=== PATIENT | male | born 1980 | race African-American/Black ===

== ENCOUNTER 2022-03-24 12:02 | Emergency (ER) | payer MEDICARE, MEDICAID, SELFPAY ==
[2022-03-24 12:09] VITALS: BP 118/80; BP 120/89; PULSE 73; PULSE 92; RESP 16; TEMP 36.9; O2SAT 98; BMI 30.7
--- NOTE | 2022-03-24 12:16 | ED.PSYCH ---
HPI - Psych General Chief Complaint: Psychiatric Symptoms <TAVON Oconnor - Last Filed: 03/24/22 17:08> Stated Complaint: SEC 12 by N, -SI/HI, Anxiety <TAVON Oconnor - Last Filed: 03/24/22 17:08> Time Seen by Provider: 03/24/22 12:15 <TAVON Oconnor - Last Filed: 03/24/22 17:08> Source: patient, EMS and old records reviewed <TAVON Oconnor - Last Filed: 03/24/22 17:08> Mode of arrival: EMS <TAVON Oconnor - Last Filed: 03/24/22 17:08> Limitations: no limitations <TAVON Oconnor - Last Filed: 03/24/22 17:08> History of Present Illness HPI Narrative: 41 yo male with history of unknown psychiatric diagnoses and polysubstance use who presents to the ER from [facility] clinic with concerns for AMS and increased anxiety. Patient reports he grew up in [place] and used to get all of his behavioral health care there. He states he has had lifelong issues with drugs and psychiatric illnesses. He cannot say what his psychiatric illnesses are. He does not know why he is in the emergency department. He states someone from the [facility] and clinic called for him to get evaluated because they were worried about him. He cannot say why they were worried. He reports medication noncompliance. He denies any SI, HI, anxiety, depression. History is limited. Poor historian. Section 12 from community - pressured speech, anxious, disorganized thought process, not compliant with meds <TAVON Oconnor - Last Filed: 03/24/22 17:08> MD complaint: anxiety <TAVON Oconnor - Last Filed: 03/24/22 17:08> Onset (ago): unknown <TAVON Oconnor - Last Filed: 03/24/22 17:08> History of same: Yes <TAVON Oconnor - Last Filed: 03/24/22 17:08> Relieving factors: none <TAVON Oconnor - Last Filed: 03/24/22 17:08> Exacerbating factors: none <TAVON Oconnor - Last Filed: 03/24/22 17:08> Context: not taking psychiatric medications <TAVON Oconnor Last Filed: 03/24/22 17:08> Associated psychiatric symptoms: depression and other (fatigue) <TAVON Oconnor Last Filed: 03/24/22 17:08> Associated symptoms: headache <TAVON Oconnor Last Filed: 03/24/22 17:08> Treatments prior to arrival: placed on mental health hold <TAVON Oconnor Last Filed: 03/24/22 17:08> Related Data Home Medications: Home Medications Medication Instructions Recorded Confirmed fluphenazine HCl 5 mg tablet 1 tab PO BID PRN manic episodes 03/24/22 03/24/22 fluphenazine decanoate 25 mg/mL 12.5 mg IM Q2W 03/24/22 03/24/22 injection solution melatonin 5 mg capsule 1 cap PO QPM 03/24/22 03/24/22 olanzapine 15 mg tablet 1 tab PO BEDTIME 03/24/22 03/24/22 valacyclovir 500 mg tablet 2 tab PO DAILY 03/24/22 03/24/22 <TAVON Oconnor Last Filed: 03/24/22 17:08> Allergies/Adverse Reactions: Allergies Allergy/AdvReac Type Severity Reaction Status Date / Time Unable to Assess Allergy Unverified 03/24/22 12:52 <TAVON Oconnor Last Filed: 03/24/22 17:08> Review of Systems Review of Systems: Constitutional: No Fever, No Chills ENT/Mouth: No sore throat, No Rhinorrhea, No Swallowing Difficulty Cardiovascular: No Chest Pain, No SOB Respiratory: No Cough, No Sputum, No Wheezing, No dyspnea Gastrointestinal: No Nausea, No Vomiting, No Diarrhea, No abdominal Pain Genitourinary: No Dysuria, No Urinary Frequency, No Hematuria Musculoskeletal: No joint pain, No Myalgias Skin: No Skin Lesions, No rash Neuro: No Weakness, No Dizziness, No Headache Psych: No Anxiety/Panic, No Depression Heme/Lymph: No Bruising, No Lymphadenopathy <TAVON Oconnor Last Filed: 03/24/22 17:08> [facility] Social History Social History: Social History Advance Directives: No <TAVON Oconnor - Last Filed: 03/24/22 17:08> Physical Exam Vital Signs: Vital Signs: Last Vital Signs Temp 97.8 F 03/25/22 06:07 Pulse 78 03/25/22 06:07 Resp 16 03/25/22 06:07 BP 132/87 03/25/22 06:07 Pulse Ox 98 03/25/22 06:07 O2 Del Method 03/25/22 06:07 BMI result Body Mass Index 30.7 <TAVON Oconnor - Last Filed: 03/24/22 17:08> Vital Signs: Last Vital Signs Temp 97.8 F 03/25/22 06:07 Pulse 78 03/25/22 06:07 Resp 16 03/25/22 06:07 BP 132/87 03/25/22 06:07 Pulse Ox 98 03/25/22 06:07 O2 Del Method 03/25/22 06:07 BMI result Body Mass Index 30.7 <TAVON Solomon - Last Filed: 03/25/22 16:39> Appearance: Alert. Oriented X3. No acute distress. Eyes: Pupils equal, round and reactive to light. ENT: Pharynx normal. Neck: Normal inspection. Neck supple. CVS: Normal heart rate and rhythm. Pulses normal. Respiratory: No respiratory distress. Breath sounds normal. Abdomen: Soft and nontender. +BS x4 Skin: Skin warm and dry. Normal skin color. Normal skin turgor. No rashes. Extremities: No lower extremity edema. Neuro/psych: Oriented X 3. No motor deficit. No sensory deficit. CN II-XII intact. Makes eye contact. Vague answers, poor historian. <TAVON Oconnor - Last Filed: 03/24/22 17:08> Course Course Course Narrative: 41-year-old male presents to the ER from [facility] with reports of anxiety and altered mental status. He is on a Section 12 from the community per EMS. He has never been to this facility. Will get basic lab workup, U tox, ETOH level. Will attempt to get records. Once medically cleared will initiate inpatient bed search. <TAVON Oconnor - Last Filed: 03/24/22 17:08> Reevaluation(s) Reevaluation #1: Physician observation started at 17:00. Patient placed in physician observation because patient is need of inpatient psych admission. Still pending basic labs. At the time observation was started patient's vital signs were stable. Patient is alert and oriented. Neuro exam is non-focal. CV: RRR and lungs are clear. Will continue to monitor. <TAVON Oconnor - Last Filed: 03/24/22 17:08> Reevaluation #2: - patient was re-evaluated by N and now he denies any SI/HI/auditory visualizations or thoughts of self-injury. He is sober at this time therefore I believe that this is why he was having disorganized thoughts and when he was 1st seen here. [facility] does not believe that he is having any disorganized thoughts they believe that he can make his own medical decisions. Therefore at this time patient will be discharged with instructions return if any new or worsening symptoms and to follow up with primary care provider. Patient understands agrees with this plan. <TAVON Solomon - Last Filed: 03/25/22 16:39> Time: 16:39 <TAVON Solomon - Last Filed: 03/25/22 16:39> Medications Administered Generic Name Dose Route Start Last Admin Trade Name Freq PRN Reason Stop Dose Admin Fluphenazine HCl 5 mg 03/24/22 13:34 03/25/22 07:41 Fluphenazine Hcl 5 Mg Tablet PO 5 mg BID PRN Administration manic episodes Melatonin 6 mg 03/24/22 21:00 03/24/22 20:33 Melatonin 3 Mg Tablet PO 6 mg BEDTIME MIKAYLA Administration Nicotine Polacrilex 2 mg 03/24/22 13:35 03/25/22 16:23 Nicotine Polacrilex 2 Mg Gum BUCCAL 2 mg Q2H PRN Administration Nicotine Cravings Olanzapine 15 mg 03/24/22 21:00 03/24/22 20:33 Olanzapine 7.5 Mg Tablet PO 15 mg BEDTIME MIKAYLA Administration <TAVON Oconnor - Last Filed: 03/24/22 17:08> Medications Administered Generic Name Dose Route Start Last Admin Trade Name Freq PRN Reason Stop Dose Admin Fluphenazine HCl 5 mg 03/24/22 13:34 03/25/22 07:41 Fluphenazine Hcl 5 Mg Tablet PO 5 mg BID PRN Administration manic episodes Melatonin 6 mg 03/24/22 21:00 03/24/22 20:33 Melatonin 3 Mg Tablet PO 6 mg BEDTIME MIKAYLA Administration Nicotine Polacrilex 2 mg 03/24/22 13:35 03/25/22 16:23 Nicotine Polacrilex 2 Mg Gum BUCCAL 2 mg Q2H PRN Administration Nicotine Cravings Olanzapine 15 mg 03/24/22 21:00 03/24/22 20:33 Olanzapine 7.5 Mg Tablet PO 15 mg BEDTIME MIKAYLA Administration <TAVON Solomon - Last Filed: 03/25/22 16:39> MDM - Psych Lab Data Result diagrams: : 03/24/22 22:13 03/24/22 22:14 <TAVON Oconnor - Last Filed: 03/24/22 17:08> Labs: Lab Results 03/24/22 03/24/22 03/24/22 Range/Units 12:20 12:20 12:20 WBC (4.8-10.8) X10*3/uL RBC (4.60-5.80) X10*6/uL Hgb (14.0-18.0) g/dl Hct (42.0-52.0) % MCV (80.0-98.0) fL MCH (27.0-33.0) pg MCHC (31.0-36.0) g/dl RDW (11.0-16.0) % Plt Count (160-400) X10*3/uL MPV (9.4-12.4) fL Immature Gran % (Auto) (0.0-0.4) % Neut % (Auto) (45-73) % Lymph % (Auto) (20-40) % Grant % (Auto) (2-11) % Eos % (Auto) (0-4) % Baso % (Auto) (0-2) % Lymph # (Auto) (1.2-4.9) X10*3/uL Grant # (Auto) (0.1-1.2) X10*3/uL Eos # (Auto) (0.0-0.4) X10*3/uL Baso # (Auto) (0.0-0.2) X10*3/uL Abs Immat Gran (auto) (0.00-0.03) X10*3/uL Absolute Neuts (auto) (2.0-8.3) x10*3/uL Absolute Nucleated RBC (0.0-0.012) X10*3/uL Nucleated RBC % (auto) (0.0-0.2) /100WBC Smear Tech's Comments Sodium (135-145) mmol/L Potassium (3.3-5.1) mmol/L Chloride (96-108) mmol/L Carbon Dioxide (22-29) mmol/L Anion Gap (12-20) BUN (9-16) mg/dL Creatinine (0.5-1.4) mg/dL Estim Creat Clear Calc Estimated GFR Random Glucose (60-115) mg/dL Calcium (8.4-10.2) mg/dL Magnesium (1.6-2.6) mg/dL Total Bilirubin (0.0-1.0) mg/dL Direct Bilirubin (0.0-0.5) mg/dL AST (5-37) U/L ALT (0-40) U/L Alkaline Phosphatase (39-117) U/L Total Protein (6.5-8.0) g/dL Albumin (3.5-5.0) g/dL Urine Color Yellow Urine Appearance Clear Urine pH 6.0 (5.0-9.0) Ur Specific Pattison 1.020 (1.005-1.025) Urine Protein Negative (Neg-Trace) mg/dL Urine Glucose (UA) Negative (Negative) mg/dL Urine Ketones Negative (Negative) mg/dL Urine Blood Negative (Negative) Urine Nitrite Negative (Negative) Ur Leukocyte Esterase Negative (Negative) Urine Opiates Screen Not Detected (Not Detect) Urine Fentanyl Screen Not Detected (Not Detect) Ur Barbiturates Screen Not Detected (Not Detect) Ur Phencyclidine Scrn Not Detected (Not Detect) Ur Amphetamines Screen Not Detected (Not Detect) U Benzodiazepines Scrn Not Detected (Not Detect) Urine Cocaine Screen POSITIVE H (Not Detect) U Marijuana (THC) Screen POSITIVE H (Not Detect) Ethyl Alcohol mg/dL COVID-19 (DELIA) Negative (Negative) COVID-19 Clin Com See Note 03/24/22 03/24/22 Range/Units 22:13 22:14 WBC 3.7 L (4.8-10.8) X10*3/uL RBC 4.91 (4.60-5.80) X10*6/uL Hgb 14.2 (14.0-18.0) g/dl Hct 41.8 L (42.0-52.0) % MCV 85.1 (80.0-98.0) fL MCH 28.9 (27.0-33.0) pg MCHC 34.0 (31.0-36.0) g/dl RDW 14.0 (11.0-16.0) % Plt Count 238 (160-400) X10*3/uL MPV 9.9 (9.4-12.4) fL Immature Gran % (Auto) 0.0 (0.0-0.4) % Neut % (Auto) 16.0 L (45-73) % Lymph % (Auto) 71.6 H (20-40) % Grant % (Auto) 8.9 (2-11) % Eos % (Auto) 2.4 (0-4) % Baso % (Auto) 1.1 (0-2) % Lymph # (Auto) 2.7 (1.2-4.9) X10*3/uL Grant # (Auto) 0.3 (0.1-1.2) X10*3/uL Eos # (Auto) 0.1 (0.0-0.4) X10*3/uL Baso # (Auto) 0.0 (0.0-0.2) X10*3/uL Abs Immat Gran (auto) 0.00 (0.00-0.03) X10*3/uL Absolute Neuts (auto) 0.6 L (2.0-8.3) x10*3/uL Absolute Nucleated RBC 0.000 (0.0-0.012) X10*3/uL Nucleated RBC % (auto) 0.0 (0.0-0.2) /100WBC Smear Tech's Comments VERIFIED Sodium 135 (135-145) mmol/L Potassium 4.7 (3.3-5.1) mmol/L Chloride 102 (96-108) mmol/L Carbon Dioxide 23 (22-29) mmol/L Anion Gap 15 (12-20) BUN 15 (9-16) mg/dL Creatinine 1.28 (0.5-1.4) mg/dL Estim Creat Clear Calc 75.6 Estimated GFR > 60 Random Glucose 97 (60-115) mg/dL Calcium 9.5 (8.4-10.2) mg/dL Magnesium 2.3 (1.6-2.6) mg/dL Total Bilirubin 0.9 (0.0-1.0) mg/dL Direct Bilirubin 0.3 (0.0-0.5) mg/dL AST 28 (5-37) U/L ALT 15 (0-40) U/L Alkaline Phosphatase 82 (39-117) U/L Total Protein 7.8 (6.5-8.0) g/dL Albumin 4.3 (3.5-5.0) g/dL Urine Color Urine Appearance Urine pH (5.0-9.0) Ur Specific Pattison (1.005-1.025) Urine Protein (Neg-Trace) mg/dL Urine Glucose (UA) (Negative) mg/dL Urine Ketones (Negative) mg/dL Urine Blood (Negative) Urine Nitrite (Negative) Ur Leukocyte Esterase (Negative) Urine Opiates Screen (Not Detect) Urine Fentanyl Screen (Not Detect) Ur Barbiturates Screen (Not Detect) Ur Phencyclidine Scrn (Not Detect) Ur Amphetamines Screen (Not Detect) U Benzodiazepines Scrn (Not Detect) Urine Cocaine Screen (Not Detect) U Marijuana (THC) Screen (Not Detect) Ethyl Alcohol < 10 mg/dL COVID-19 (DELIA) (Negative) COVID-19 Clin Com <TAVON Oconnor - Last Filed: 03/24/22 17:08> Lab Results 03/24/22 03/24/22 03/24/22 Range/Units 12:20 12:20 12:20 WBC (4.8-10.8) X10*3/uL RBC (4.60-5.80) X10*6/uL Hgb (14.0-18.0) g/dl Hct (42.0-52.0) % MCV (80.0-98.0) fL MCH (27.0-33.0) pg MCHC (31.0-36.0) g/dl RDW (11.0-16.0) % Plt Count (160-400) X10*3/uL MPV (9.4-12.4) fL Immature Gran % (Auto) (0.0-0.4) % Neut % (Auto) (45-73) % Lymph % (Auto) (20-40) % Grant % (Auto) (2-11) % Eos % (Auto) (0-4) % Baso % (Auto) (0-2) % Lymph # (Auto) (1.2-4.9) X10*3/uL Grant # (Auto) (0.1-1.2) X10*3/uL Eos # (Auto) (0.0-0.4) X10*3/uL Baso # (Auto) (0.0-0.2) X10*3/uL Abs Immat Gran (auto) (0.00-0.03) X10*3/uL Absolute Neuts (auto) (2.0-8.3) x10*3/uL Absolute Nucleated RBC (0.0-0.012) X10*3/uL Nucleated RBC % (auto) (0.0-0.2) /100WBC Smear Tech's Comments Sodium (135-145) mmol/L Potassium (3.3-5.1) mmol/L Chloride (96-108) mmol/L Carbon Dioxide (22-29) mmol/L Anion Gap (12-20) BUN (9-16) mg/dL Creatinine (0.5-1.4) mg/dL Estim Creat Clear Calc Estimated GFR Random Glucose (60-115) mg/dL Calcium (8.4-10.2) mg/dL Magnesium (1.6-2.6) mg/dL Total Bilirubin (0.0-1.0) mg/dL Direct Bilirubin (0.0-0.5) mg/dL AST (5-37) U/L ALT (0-40) U/L Alkaline Phosphatase (39-117) U/L Total Protein (6.5-8.0) g/dL Albumin (3.5-5.0) g/dL Urine Color Yellow Urine Appearance Clear Urine pH 6.0 (5.0-9.0) Ur Specific Pattison 1.020 (1.005-1.025) Urine Protein Negative (Neg-Trace) mg/dL Urine Glucose (UA) Negative (Negative) mg/dL Urine Ketones Negative (Negative) mg/dL Urine Blood Negative (Negative) Urine Nitrite Negative (Negative) Ur Leukocyte Esterase Negative (Negative) Urine Opiates Screen Not Detected (Not Detect) Urine Fentanyl Screen Not Detected (Not Detect) Ur Barbiturates Screen Not Detected (Not Detect) Ur Phencyclidine Scrn Not Detected (Not Detect) Ur Amphetamines Screen Not Detected (Not Detect) U Benzodiazepines Scrn Not Detected (Not Detect) Urine Cocaine Screen POSITIVE H (Not Detect) U Marijuana (THC) Screen POSITIVE H (Not Detect) Ethyl Alcohol mg/dL COVID-19 (DELAI) Negative (Negative) COVID-19 Clin Com See Note 03/24/22 03/24/22 Range/Units 22:13 22:14 WBC 3.7 L (4.8-10.8) X10*3/uL RBC 4.91 (4.60-5.80) X10*6/uL Hgb 14.2 (14.0-18.0) g/dl Hct 41.8 L (42.0-52.0) % MCV 85.1 (80.0-98.0) fL MCH 28.9 (27.0-33.0) pg MCHC 34.0 (31.0-36.0) g/dl RDW 14.0 (11.0-16.0) % Plt Count 238 (160-400) X10*3/uL MPV 9.9 (9.4-12.4) fL Immature Gran % (Auto) 0.0 (0.0-0.4) % Neut % (Auto) 16.0 L (45-73) % Lymph % (Auto) 71.6 H (20-40) % Grant % (Auto) 8.9 (2-11) % Eos % (Auto) 2.4 (0-4) % Baso % (Auto) 1.1 (0-2) % Lymph # (Auto) 2.7 (1.2-4.9) X10*3/uL Grant # (Auto) 0.3 (0.1-1.2) X10*3/uL Eos # (Auto) 0.1 (0.0-0.4) X10*3/uL Baso # (Auto) 0.0 (0.0-0.2) X10*3/uL Abs Immat Gran (auto) 0.00 (0.00-0.03) X10*3/uL Absolute Neuts (auto) 0.6 L (2.0-8.3) x10*3/uL Absolute Nucleated RBC 0.000 (0.0-0.012) X10*3/uL Nucleated RBC % (auto) 0.0 (0.0-0.2) /100WBC Smear Tech's Comments VERIFIED Sodium 135 (135-145) mmol/L Potassium 4.7 (3.3-5.1) mmol/L Chloride 102 (96-108) mmol/L Carbon Dioxide 23 (22-29) mmol/L Anion Gap 15 (12-20) BUN 15 (9-16) mg/dL Creatinine 1.28 (0.5-1.4) mg/dL Estim Creat Clear Calc 75.6 Estimated GFR > 60 Random Glucose 97 (60-115) mg/dL Calcium 9.5 (8.4-10.2) mg/dL Magnesium 2.3 (1.6-2.6) mg/dL Total Bilirubin 0.9 (0.0-1.0) mg/dL Direct Bilirubin 0.3 (0.0-0.5) mg/dL AST 28 (5-37) U/L ALT 15 (0-40) U/L Alkaline Phosphatase 82 (39-117) U/L Total Protein 7.8 (6.5-8.0) g/dL Albumin 4.3 (3.5-5.0) g/dL Urine Color Urine Appearance Urine pH (5.0-9.0) Ur Specific Pattison (1.005-1.025) Urine Protein (Neg-Trace) mg/dL Urine Glucose (UA) (Negative) mg/dL Urine Ketones (Negative) mg/dL Urine Blood (Negative) Urine Nitrite (Negative) Ur Leukocyte Esterase (Negative) Urine Opiates Screen (Not Detect) Urine Fentanyl Screen (Not Detect) Ur Barbiturates Screen (Not Detect) Ur Phencyclidine Scrn (Not Detect) Ur Amphetamines Screen (Not Detect) U Benzodiazepines Scrn (Not Detect) Urine Cocaine Screen (Not Detect) U Marijuana (THC) Screen (Not Detect) Ethyl Alcohol < 10 mg/dL COVID-19 (DELIA) (Negative) COVID-19 Clin Com <TAVON Solomon - Last Filed: 03/25/22 16:39> Critical Care Time Critical Care Time Critical Care Time: No <TAVON Oconnor - Last Filed: 03/24/22 17:08> Discharge Plan Discharge Clinical Impression: Cocaine use disorder <TAVON Oconnor - Last Filed: 03/24/22 17:08> Patient Disposition: Home, Self-Care <TAVON Oconnor - Last Filed: 03/24/22 17:08> Instructions: Cocaine Abuse (ED) <TAVON Oconnor - Last Filed: 03/24/22 17:08> Prescriptions: No Action fluphenazine decanoate 25 mg/mL solution 12.5 mg IM Q2W fluphenazine HCl 5 mg tablet 1 tab PO BID PRN (Reason: manic episodes) melatonin 5 mg capsule 1 cap PO QPM olanzapine 15 mg tablet 1 tab PO BEDTIME valacyclovir 500 mg tablet 2 tab PO DAILY <TAVON Oconnor - Last Filed: 03/24/22 17:08> Referrals: Physician,Unknown J [Primary Care Provider] - 2 days (your pcp) <TAVON Oconnor - Last Filed: 03/24/22 17:08> Interventions: [place]-Suicide Risk Severity Scale Last Done: 03/25/22 14:05 <TAVON Oconnor - Last Filed: 03/24/22 17:08>
[2022-03-24 12:33] LABS: Appearance Urine Clear; Color Urine Yellow; Glucose Urine UA Negative (Negative); Leukocyte Esterase Urine Negative (Negative); Nitrite Urine Negative (Negative); Urine Blood Negative (Negative); Urine Ketones Negative (Negative); Urine Protein Negative (Neg-Trace)
[2022-03-24 12:42] LABS: Amphetamine Screen Urine Not Detected (Not Detect); Barbiturates, Urine Not Detected (Not Detect); Benzodiazepines Screen Urine Not Detected (Not Detect); Cannabinoid Screen Urine POSITIVE (Not Detect); Cocaine Screen Urine POSITIVE (Not Detect); Fentanyl, urine Not Detected (Not Detect); Opiate Screen Urine Not Detected (Not Detect); Phencyclidine Screen Urine Not Detected (Not Detect)
--- NOTE | 2022-03-24 12:42 | MHC.CARE ---
Seen by [facility] Livia and is a bed search from the community
[2022-03-24 12:46] LABS: COVID-19 Test Negative (Negative); IDNOW Serial# 16C4AD1C
--- NOTE | 2022-03-24 13:46 | PC.NURSE ---
Pt refusing blood draw at this time. Rn aware.
[2022-03-24 14:10] VITALS: BP 118/89; PULSE 82; RESP 18; TEMP 36.8; O2SAT 96
[2022-03-24] MEDS: Melatonin 3 MG TABLET 6 MG PO (20:33)
[2022-03-24] MEDS: OLANZapine 7.5 MG TABLET 15 MG PO (20:33)
[2022-03-24] MEDS: fluPHENAZine HCl 5 MG TABLET PO (22:23)
[2022-03-24 22:29] VITALS: BP 140/97; PULSE 64; RESP 18; TEMP 36.3; O2SAT 97
[2022-03-24 22:30] LABS: Basophils Percent Auto 1.1 % (0-2); Eosinophils Absolute Auto 0.1 X10*3/uL (0.0-0.4); Eosinophils Percent Auto 2.4 % (0-4); Hematocrit 41.8 % (42.0-52.0); Hemoglobin 14.2 g/dl (14.0-18.0); Lymphocytes Absolute Auto 2.7 X10*3/uL (1.2-4.9); Lymphocytes Percent Auto 71.6 % (20-40); MANUAL DIFF FLAG SCAN; Mean Corpuscular Hemoglobin 28.9 pg (27.0-33.0); Mean Corpuscular Volume 85.1 fL (80.0-98.0); Mean Platelet Volume 9.9 fL (9.4-12.4); Monocytes Absolute Auto 0.3 X10*3/uL (0.1-1.2); Monocytes Percent Auto 8.9 % (2-11); Neutrophils Absolute Auto 0.6 x10*3/uL (2.0-8.3); Platelet Count 238 X10*3/uL (160-400); Red Blood Count 4.91 X10*6/uL (4.60-5.80); SCAN SMEAR FLAG 1; White Blood Count 3.7 X10*3/uL (4.8-10.8)
[2022-03-24 22:46] LABS: Alanine Aminotransferase 15 U/L (0-40); Albumin Level 4.3 g/dL (3.5-5.0); Alkaline Phosphatase 82 U/L (39-117); Anion Gap 15 (12-20); Aspartate Amino Transferase 28 U/L (5-37); Bilirubin Direct 0.3 mg/dL (0.0-0.5); Blood Urea Nitrogen 15 mg/dL (9-16); Calcium 9.5 mg/dL (8.4-10.2); Carbon Dioxide 23 mmol/L (22-29); Chloride 102 mmol/L (96-108); Creatinine Clr Calc Pharmacy 75.6; Estimated Glomerular Filt Rate > 60; Ethanol < 10 mg/dL; Glucose Random 97 mg/dL (60-115); Magnesium 2.3 mg/dL (1.6-2.6); Potassium 4.7 mmol/L (3.3-5.1); Sodium 135 mmol/L (135-145); Total Protein 7.8 g/dL (6.5-8.0)
[2022-03-24 22:56] LABS: SLIDE REVIEW VERIFIED
[2022-03-24 23:53] LABS: Bilirubin Total 0.9 mg/dL (0.0-1.0)
--- NOTE | 2022-03-25 06:02 | PC.NURSE ---
Patient slept through the night, no distress observed/reported, behavior appropriate and non concerning at this time, medication compliant, disposition per [facility] from community is section 12 inpatient bed search, VSS, will continue to monitor.
[2022-03-25 06:07] VITALS: BP 132/87; PULSE 78; RESP 16; TEMP 36.6; O2SAT 98
[2022-03-25] MEDS: Nicotine Polacrilex 2 MG GUM BUCCAL ×3 (07:15→16:23)
[2022-03-25] MEDS: fluPHENAZine HCl 5 MG TABLET PO (07:41)
--- NOTE | 2022-03-25 08:40 | PC.NURSE ---
requested prn and given, polite and pleasant, nad, steady gait to bathroom, spending most of his time laying in the bed 7
== END 2022-03-25 16:47 | disposition home or self-care (01) ==
PROVIDERS: Physician Assistant; Emergency Provider Emergency Medicine
DX: F14.10 Cocaine abuse, uncomplicated (principal); F41.9 Anxiety disorder, unspecified; F32.A Depression, unspecified; Z20.822 Contact with and (suspected) exposure to COVID-19; Z91.14 Patient's other noncompliance with medication regimen
CPT/HCPCS: 36415; 80048; 80076; 80307; 81003; 82077; 83735; 85025; 87635; 99284

== ENCOUNTER 2022-04-12 15:28 | Inpatient (IN) | payer OTHER, MEDICAID, SELFPAY ==
[2022-04-12 15:41] VITALS: BP 109/85; PULSE 80; PULSE 90; RESP 16; TEMP 37; O2SAT 94; O2SAT 97; BMI 22.7
--- NOTE | 2022-04-12 15:43 | MHC.CARE ---
Pt is an inpatient bedsearch at this time.
[2022-04-12 16:27] LABS: COVID-19 Test Negative (Negative); IDNOW Serial# 9DB6401D
[2022-04-12 17:29] LABS: Amphetamine Screen Urine Not Detected (Not Detect); Barbiturates, Urine Not Detected (Not Detect); Benzodiazepines Screen Urine Not Detected (Not Detect); Cannabinoid Screen Urine Not Detected (Not Detect); Cocaine Screen Urine Not Detected (Not Detect); Fentanyl, urine Not Detected (Not Detect); Opiate Screen Urine Not Detected (Not Detect); Phencyclidine Screen Urine Not Detected (Not Detect)
--- NOTE | 2022-04-12 18:20 | ED.PSYCH ---
HPI - Psych General Chief Complaint: Psychiatric Symptoms <Leela Car MD - Last Filed: 04/12/22 21:56> Stated Complaint: SEC 12 <Leela Car MD - Last Filed: 04/12/22 21:56> Time Seen by Provider: 04/12/22 15:49 <Leela Car MD - Last Filed: 04/12/22 21:56> Source: patient and EMS <Leela Car MD - Last Filed: 04/12/22 21:56> Mode of arrival: EMS <Leela Car MD - Last Filed: 04/12/22 21:56> Limitations: no limitations <Leela Car MD - Last Filed: 04/12/22 21:56> History of Present Illness HPI Narrative: Patient comes to the emergency room complaining that he was just discharged from [facility], he was supposed to go to respite in [place]. However, patient was Section 12 by [facility], brought to the emergency room. The report we got from EMS is that the patient has not been sleeping and is refusing to take any medications. Patient denies suicidal or homicidal ideation. <Leela Car MD - Last Filed: 04/12/22 21:56> Related Data Home Medications: Home Medications Medication Instructions Recorded Confirmed fluphenazine HCl 5 mg tablet 1 tab PO BID PRN manic episodes 03/24/22 04/12/22 fluphenazine decanoate 25 mg/mL 12.5 mg IM Q2W 03/24/22 04/12/22 injection solution clonidine HCl 0.1 mg tablet 0.5 tab PO QID PRN Anxiety 04/12/22 04/12/22 melatonin 3 mg tablet 6 mg PO BEDTIME 04/12/22 04/12/22 nicotine (polacrilex) 4 mg gum 4 mg buccal Q2H PRN Nicotine 04/12/22 04/12/22 Cravings olanzapine 5 mg tablet 5 mg PO QAM 04/12/22 04/12/22 olanzapine 5 mg tablet 10 mg PO BEDTIME 04/12/22 04/12/22 thiamine HCl (vitamin B1) 100 mg 100 mg PO DAILY 04/12/22 04/12/22 tablet (Vitamin B-1) trazodone 50 mg tablet 1 tab PO DAILY PRN insomnia 04/12/22 04/12/22 valacyclovir 500 mg tablet 1 tab PO BID 04/12/22 04/12/22 <Leela Car MD - Last Filed: 04/12/22 21:56> Allergies/Adverse Reactions: Allergies Allergy/AdvReac Type Severity Reaction Status Date / Time iodine AdvReac Severe Difficulty Verified 04/12/22 20:26 Breathing shellfish derived AdvReac Intermediate Swelling Verified 04/12/22 20:26 <Leela Cra MD - Last Filed: 04/12/22 21:56> Review of Systems Review of Systems: Constitutional : No Weight loss, No Fever, No Chills, No Night Sweats, No Fatigue, No Malaise ENT/Mouth : No Hearing loss, No Ear Pain, No Nasal Congestion, No Sinus Pain, No Hoarseness, No sore throat, No Rhinorrhea, No Swallowing Difficulty Eyes: No Eye Pain, No Swelling, No Redness, No Foreign Body, No Discharge, No Vision Changes Cardiovascular : No Chest Pain, No SOB, No Dyspnea on Exertion, No Orthopnea, No Edema, No Palpitations Respiratory : No Cough, No Sputum, No Wheezing, No Smoke Exposure, No Dyspnea Gastrointestinal : No Nausea, No Vomiting, No Diarrhea, No Constipation, No abdominal Pain, No Hematochezia, No Melena Genitourinary : no irregular bleeding, No Dysuria, No Urinary Frequency, No Hematuria, No Urinary Incontinence, No Urgency, No Flank Pain, No Urinary Flow Changes, No Hesitancy Musculoskeletal : No joint pain, No Myalgias, No Joint Swelling Skin : No Skin Lesions, No rash Neuro : No Weakness, No Numbness, No Paresthesias, No Loss of Consciousness, No Dizziness, No Headache Psych : Denies suicidal or homicidal ideation. Patient states that it is not true that he has not been sleeping or declining to take his medications Heme/Lymph: No Bruising, No Bleeding,No Lymphadenopathy Endocrine : No Polyuria, No Polydipsia, No Temperature Intolerance <Leela Car MD - Last Filed: 04/12/22 21:56> [facility] Past Medical History Medical History: Medical History (Updated 04/12/22 @ 18:26 by Leela Car MD) Substance abuse <Leela Car MD - Last Filed: 04/12/22 21:56> Social History Social History: Social History Advance Directives: No Advance Directives Information Provided: No <Leela Car MD - Last Filed: 04/12/22 21:56> Physical Exam Vital Signs: Vital Signs: Last Vital Signs Temp 97.3 F 04/12/22 20:31 Pulse 86 04/12/22 20:31 Resp 16 04/13/22 06:42 BP 121/83 04/12/22 20:31 Pulse Ox 98 04/12/22 20:31 O2 Del Method 04/12/22 20:31 BMI result Body Mass Index 22.7 <Leela Car MD - Last Filed: 04/12/22 21:56> Vital Signs: Last Vital Signs Temp 97.3 F 04/12/22 20:31 Pulse 86 04/12/22 20:31 Resp 16 04/13/22 06:42 BP 121/83 04/12/22 20:31 Pulse Ox 98 04/12/22 20:31 O2 Del Method 04/12/22 20:31 BMI result Body Mass Index 22.7 <TAVON Jack - Last Filed: 04/13/22 08:39> Const: Other: Appearance: Alert. Oriented X3. No acute distress. Eyes: Pupils equal, round and reactive to light. ENT: Pharynx normal. Neck: Normal inspection. Neck supple. No lymph nodes noted. No crepitus CVS: Normal heart rate and rhythm. Pulses normal. Normal S1 and S2 Respiratory: No respiratory distress. Breath sounds normal. No Wheezing. No rales Abdomen: Soft and nontender. No rigidity. No distention. Skin: Skin warm and dry. Normal skin color. Normal skin turgor. Extremities: No lower extremity edema. No Lacerations. No Rash Neuro: Oriented X 3. No motor deficit. No sensory deficit. Moving all extremities. No slurred speech. CN 2 through 12 grossly intact Psych: calm, cooperative, seems a bit frustrated, redirectable, <Leela Car MD - Last Filed: 04/12/22 21:56> Course Course Course Narrative: Behavioral health network Section 12 the patient. Diagnosed with paranoia and delusions. Patient is on an inpatient bed search. Urine toxicology is negative, COVID negative. Physician of sedation started at 18:20 BHN following, to be admitted 21:55 I discussed the patient with behavioral health network. Patient is very disorganized, paranoid, has history of schizophrenia. Previously Section 12 by [facility]. Patient unwilling to sign in, states he is fine but clearly he is very disorganized delusional, not acting right. I agreed with [facility] that patient needs to be hospitalized, I signed a section 12b <Leela Car MD - Last Filed: 04/12/22 21:56> [facility] network Section 12 the patient. Diagnosed with paranoia and delusions. Patient is on an inpatient bed search. Urine toxicology is negative, COVID negative. Physician of sedation started at 18:20 [facility]N following, to be admitted 21:55 I discussed the patient with [facility]. Patient is very disorganized, paranoid, has history of schizophrenia. Previously Section 12 by [facility]. Patient unwilling to sign in, states he is fine but clearly he is very disorganized delusional, not acting right. I agreed with [facility] that patient needs to be hospitalized, I signed a section 12b 0838 04/13/2022: Patient admitted to inpatient psych. <TAVON Jack - Last Filed: 04/13/22 08:39> Medications Administered Generic Name Dose Route Start Last Admin Trade Name Freq PRN Reason Stop Dose Admin Fluphenazine HCl 5 mg 04/12/22 19:44 04/12/22 20:36 Fluphenazine Hcl 5 Mg Tablet PO 5 mg BID PRN Administration manic episodes Melatonin 6 mg 04/12/22 21:00 04/12/22 22:35 Melatonin 3 Mg Tablet PO Not Given BEDTIME MIKAYLA Nicotine Polacrilex 4 mg 04/12/22 19:44 04/13/22 01:04 Nicotine Polacrilex 2 Mg Gum BUCCAL 4 mg Q2H PRN Administration Nicotine Cravings Olanzapine 10 mg 04/12/22 21:00 04/12/22 20:37 Olanzapine 10 Mg Tablet PO 10 mg BEDTIME MIKAYLA Administration Olanzapine 5 mg 04/13/22 09:00 04/13/22 07:18 Olanzapine 5 Mg Tablet PO 5 mg DAILY MIKAYLA Administration Thiamine HCl 100 mg 04/13/22 09:00 04/13/22 07:17 Thiamine Hcl 100 Mg Tablet PO 100 mg DAILY MIKAYLA Administration Valacyclovir HCl 500 mg 04/12/22 21:00 04/13/22 07:18 Valacyclovir Hcl 500 Mg Tablet PO 500 mg BID MIKAYLA Administration Discontinued Medications Generic Name Dose Route Start Last Admin Trade Name Freq PRN Reason Stop Dose Admin Hydroxyzine HCl 25 mg 04/13/22 00:14 04/13/22 01:25 Hydroxyzine Hcl 25 Mg Tablet PO 04/13/22 00:15 Not Given ONCE ONE Olanzapine 5 mg 04/12/22 19:45 04/12/22 20:28 Olanzapine 5 Mg Tablet PO Not Given DAILY MIKAYLA <Leela Car MD - Last Filed: 04/12/22 21:56> Medications Administered Generic Name Dose Route Start Last Admin Trade Name Darlin PRN Reason Stop Dose Admin Fluphenazine HCl 5 mg 04/12/22 19:44 04/12/22 20:36 Fluphenazine Hcl 5 Mg Tablet PO 5 mg BID PRN Administration manic episodes Melatonin 6 mg 04/12/22 21:00 04/12/22 22:35 Melatonin 3 Mg Tablet PO Not Given BEDTIME MIKAYLA Nicotine Polacrilex 4 mg 04/12/22 19:44 04/13/22 01:04 Nicotine Polacrilex 2 Mg Gum BUCCAL 4 mg Q2H PRN Administration Nicotine Cravings Olanzapine 10 mg 04/12/22 21:00 04/12/22 20:37 Olanzapine 10 Mg Tablet PO 10 mg BEDTIME MIKAYLA Administration Olanzapine 5 mg 04/13/22 09:00 04/13/22 07:18 Olanzapine 5 Mg Tablet PO 5 mg DAILY MIKAYLA Administration Thiamine HCl 100 mg 04/13/22 09:00 04/13/22 07:17 Thiamine Hcl 100 Mg Tablet PO 100 mg DAILY MIKAYLA Administration Valacyclovir HCl 500 mg 04/12/22 21:00 04/13/22 07:18 Valacyclovir Hcl 500 Mg Tablet PO 500 mg BID MIKAYLA Administration Discontinued Medications Generic Name Dose Route Start Last Admin Trade Name Darlin PRN Reason Stop Dose Admin Hydroxyzine HCl 25 mg 04/13/22 00:14 04/13/22 01:25 Hydroxyzine Hcl 25 Mg Tablet PO 04/13/22 00:15 Not Given ONCE ONE Olanzapine 5 mg 04/12/22 19:45 04/12/22 20:28 Olanzapine 5 Mg Tablet PO Not Given DAILY MIKAYLA <TAVON Jack - Last Filed: 04/13/22 08:39> Medical Decision Making Lab Data Labs: Lab Results 04/12/22 04/12/22 Range/Units 15:53 17:12 Urine Opiates Screen Not Detected (Not Detect) Urine Fentanyl Screen Not Detected (Not Detect) Ur Barbiturates Screen Not Detected (Not Detect) Ur Phencyclidine Scrn Not Detected (Not Detect) Ur Amphetamines Screen Not Detected (Not Detect) U Benzodiazepines Scrn Not Detected (Not Detect) Urine Cocaine Screen Not Detected (Not Detect) U Marijuana (THC) Screen Not Detected (Not Detect) COVID-19 (DELIA) Negative (Negative) COVID-19 Clin Com See Note <Leela Car MD - Last Filed: 04/12/22 21:56> Lab Results 04/12/22 04/12/22 Range/Units 15:53 17:12 Urine Opiates Screen Not Detected (Not Detect) Urine Fentanyl Screen Not Detected (Not Detect) Ur Barbiturates Screen Not Detected (Not Detect) Ur Phencyclidine Scrn Not Detected (Not Detect) Ur Amphetamines Screen Not Detected (Not Detect) U Benzodiazepines Scrn Not Detected (Not Detect) Urine Cocaine Screen Not Detected (Not Detect) U Marijuana (THC) Screen Not Detected (Not Detect) COVID-19 (DELIA) Negative (Negative) COVID-19 Clin Com See Note <TAVON Jcak - Last Filed: 04/13/22 08:39> Discharge Plan Discharge Clinical Impression: Paranoid, Delusional disorder <Leela Car MD - Last Filed: 04/12/22 21:56> Patient Disposition: Admitted As Inpatient <Leela Car MD - Last Filed: 04/12/22 21:56> Interventions: [place]-Suicide Risk Severity Scale Last Done: 04/13/22 04:58 Admission Worksheet (ED) Last Done: 04/13/22 08:30 <Leela Car MD - Last Filed: 04/12/22 21:56>
[2022-04-12 20:31] VITALS: BP 121/83; PULSE 86; RESP 20; TEMP 36.3; O2SAT 98
[2022-04-12] MEDS: valACYclovir HCL 500 MG TABLET PO (20:36)
[2022-04-12] MEDS: fluPHENAZine HCl 5 MG TABLET PO (20:36)
[2022-04-12] MEDS: OLANZapine 10 MG TABLET PO (20:37)
[2022-04-13] MEDS: Nicotine Polacrilex 2 MG GUM 4 MG BUCCAL ×7 (01:04→23:19)
--- NOTE | 2022-04-13 05:39 | PC.NURSE ---
Patient was upset and agitated for being here in the locked unit on Section 12, patient repeatedly demanding discharge, multiple attempts were made to explain patient's disposition but with no success, patient was phone most part of evening talking about how unfair and illegal to keep him here, HS medication offered but with much delay agreed to take scheduled Olanzapine and Valtrex, refused Melatonin, prn Prolixin 5 mg offered and accepted with + effect, patient eventually fall sleep at 0030 stayed sleep whole night without any distress, Med rec completed by speaking with patient, referring to pharmacy claim history, and looking at [facility] discharge paper, patient was discharged on 04/11/22 from [facility], patient was assessed by [facility]N at [facility] in [place], was sent here on section 12 with disposition inpatient bed search, patient refused blood draw and EKG in protest, refused x 3 when approached again, patient was pre-accepted to M3 due to lab refusal and patient's acquit admission to M3 postponed, behavior unpredictable but not concerning at this time, VSS, will continue to monitor.
[2022-04-13 06:42] VITALS: RESP 16
[2022-04-13] MEDS: Thiamine HCL 100 MG TABLET PO (07:17)
[2022-04-13] MEDS: OLANZapine 5 MG TABLET PO (07:18)
[2022-04-13] MEDS: valACYclovir HCL 500 MG TABLET PO ×2 (07:18→19:46)
--- NOTE | 2022-04-13 07:19 | PC.NURSE ---
Addendum entered by Roula Medina 04/13/22 12:07: Nayla CHAVEZ at bedside. Addendum entered by Roula Medina 04/13/22 07:48: Pt asking for nicotine gum, refusing saying i'm just going to quit . acutely paranoid at this time. Pt updated to inpt status. Per pt: fuck this, I just got out of [facility]. they fucked with my meds there . Original Note: Permission given by ed attending to give 9am medications early.
[2022-04-13 18:00] VITALS: BP 102/59; PULSE 91; TEMP 36.2; O2SAT 96
[2022-04-13] MEDS: OLANZapine 10 MG TABLET PO (19:43)
[2022-04-13] MEDS: traZODone HCL 50 MG TABLET PO (19:46)
[2022-04-13] MEDS: fluPHENAZine HCl 5 MG TABLET PO (19:48)
[2022-04-13] MEDS: hydrOXYzine HCL 25 MG TABLET PO (19:48)
[2022-04-13] MEDS: cloNIDine HCL 0.1 MG TABLET 0.05 MG PO ×2 (20:11→23:21)
--- NOTE | 2022-04-13 23:35 | PC.ADMIT ---
pt is a 41 year old male who represented to [facility] ED after being accessed by [facility] for paranoid and tangential speech. pt was just released from [facility] 2 days ago and was at [facility]. pt has a PMH of inpatient psych stays, schizophrenia and cocaine use disorder. during admission, pt did not want to answer questions or sign paperwork. pt did not want sign paperwork when asked again. pt did not want to take melatonin and he says it doesn't help him sleep. pt wants to leave unit to visit family. pt did not eat dinner, but drank coffee and water. start treatment plan and promote safety.
[2022-04-14] MEDS: Nicotine Polacrilex 2 MG GUM 4 MG BUCCAL ×7 (05:02→22:47)
[2022-04-14] MEDS: hydrOXYzine HCL 25 MG TABLET PO ×4 (05:02→22:47)
[2022-04-14 06:00] VITALS: BP 112/75; PULSE 77; RESP 16; TEMP 36.3; O2SAT 98
[2022-04-14] MEDS: cloNIDine HCL 0.1 MG TABLET 0.05 MG PO (06:11)
[2022-04-14] MEDS: valACYclovir HCL 500 MG TABLET PO ×2 (08:10→20:04)
[2022-04-14] MEDS: Thiamine HCL 100 MG TABLET PO (08:10)
[2022-04-14] MEDS: OLANZapine 5 MG TABLET PO (08:10)
[2022-04-14 08:30] LABS: Basophils Percent Auto 0.7 % (0-2); Eosinophils Absolute Auto 0.1 X10*3/uL (0.0-0.4); Eosinophils Percent Auto 3.1 % (0-4); Hematocrit 41.3 % (42.0-52.0); Hemoglobin 13.5 g/dl (14.0-18.0); Imm Gran Abs Auto 0.01 X10*3/uL (0.00-0.03); Imm Gran Pct Auto 0.3 % (0.0-0.4); Lymphocytes Absolute Auto 1.5 X10*3/uL (1.2-4.9); Lymphocytes Percent Auto 52.6 % (20-40); MANUAL DIFF FLAG SCAN; Mean Corpuscular HGB Conc 32.7 g/dl (31.0-36.0); Mean Corpuscular Hemoglobin 28.4 pg (27.0-33.0); Mean Corpuscular Volume 86.8 fL (80.0-98.0); Mean Platelet Volume 9.9 fL (9.4-12.4); Monocytes Absolute Auto 0.3 X10*3/uL (0.1-1.2); Monocytes Percent Auto 10.1 % (2-11); Neutrophils Percent Auto 33.2 % (45-73); Platelet Count 228 X10*3/uL (160-400); Red Blood Count 4.76 X10*6/uL (4.60-5.80); Red Cell Distribution Width 14.3 % (11.0-16.0); SCAN SMEAR FLAG 1; White Blood Count 2.9 X10*3/uL (4.8-10.8)
[2022-04-14 08:44] LABS: Estimated Average Glucose 105 mg/dL; Hemoglobin A1c % 5.3 %
[2022-04-14 08:54] LABS: SLIDE REVIEW VERIFIED
--- NOTE | 2022-04-14 09:21 | HO.PSYADMNOT ---
HPI Date of Service: 04/14/22 Chief Complaint: Schizophrenia Sources of Information: patient interviewed, chart reviewed and crisis/core team assessment reviewed HPI Subjective Notes: Conditional Voluntary Healthcare Proxy: No Guardianship: No Medical Problems Affecting Mental Status: No Narrative: Bert is a 35-year-old , , unemployed, father of 3. This is 1 of many psychiatric hospitalizations. He was discharged from [facility] on 04/[facility]. Upon returning to his long-term where he has been staying for over 2 months someone who knows him called crisis team and he was re-evaluated. He has not been taking his medications. Current medications includes clonidine and Ms. 0.05 mg q.4 hours p.r.n., trazodone 50 mg q.h.s., melatonin 6 mg q.h.s., olanzapine 5 mg daily and 10 mg q.h.s., Prolixin Decanoate 12.5 mg q.2 weeks IM. He was hoping to be connected to the [facility] since he lives in [place]. He was hospitalized at [facility] when he was found to be agitated, disorganized, having paranoid ideations and delusions. He could not tell me anything specific about these issues. He has had previous hospitalizations, several since age 17. He does have history of substance abuse but denies any current or recent use. In the past he has used cocaine, marijuana, opiates. Denies any side effects to the above medications while he was taking them. As stated he has been staying at [facility]. Past Psychiatric History: Numerous psychiatric hospitalizations and medication noncompliance Medical Evaluation Reviewed: Hospitalist Madi Pending [facility] Medical History (Updated 04/14/22 @ 09:38 by Ca Galo MD) Substance abuse Narrative: History of cocaine, marijuana and opiate use but not currently and recent Narrative: None Family History: Could not obtain Social History: Bert is the oldest of 4 children. His parents got when he was 8. He was raised by his mother in [place]. She is still resides there. He did finish high school and attended some trade school. He has not worked for 2 years and is currently living in a long-term. He denies any history of abuse growing up. He has been once in 2003 to 2007. He has 1 child from the marriage and 2 from other relationships but he has not seen any of a min 9 years. Substance History: History of marijuana, cocaine and opiate use Trauma History: None Diagnostics Vital Signs (24Hr): Vital Signs - 24 hr 04/13/22 18:00 Temperature 97.1 F Pulse Rate 91 Blood Pressure 102/59 L Pulse Oximetry 96 Oxygen Delivery Method Room Air BMI result Body Mass Index 22.7 Labs Results: 04/14/22 07:57 04/14/22 07:57 Labs: Laboratory Results - last 48 hr 04/12/22 04/12/22 04/14/22 15:53 17:12 07:57 WBC 2.9 L RBC 4.76 Hgb 13.5 L Hct 41.3 L MCV 86.8 MCH 28.4 MCHC 32.7 RDW 14.3 Plt Count 228 MPV 9.9 Immature Gran % (Auto) 0.3 Neut % (Auto) 33.2 L Lymph % (Auto) 52.6 H [place] % (Auto) 10.1 Eos % (Auto) 3.1 Baso % (Auto) 0.7 Lymph # (Auto) 1.5 [place] # (Auto) 0.3 Eos # (Auto) 0.1 Baso # (Auto) 0.0 Abs Immat Gran (auto) 0.01 Absolute Neuts (auto) 1.0 L Absolute Nucleated RBC 0.000 Nucleated RBC % (auto) 0.0 Smear Tech's Comments VERIFIED Estimat Average Glucose Hemoglobin A1c % Urine Opiates Screen Not Detected Urine Fentanyl Screen Not Detected Ur Barbiturates Screen Not Detected Ur Phencyclidine Scrn Not Detected Ur Amphetamines Screen Not Detected U Benzodiazepines Scrn Not Detected Urine Cocaine Screen Not Detected U Marijuana (THC) Screen Not Detected COVID-19 (DELIA) Negative COVID-19 Clin Com See Note 04/14/22 07:57 WBC RBC Hgb Hct MCV MCH MCHC RDW Plt Count MPV Immature Gran % (Auto) Neut % (Auto) Lymph % (Auto) [place] % (Auto) Eos % (Auto) Baso % (Auto) Lymph # (Auto) [place] # (Auto) Eos # (Auto) Baso # (Auto) Abs Immat Gran (auto) Absolute Neuts (auto) Absolute Nucleated RBC Nucleated RBC % (auto) Smear Tech's Comments Estimat Average Glucose 105 Hemoglobin A1c % 5.3 Urine Opiates Screen Urine Fentanyl Screen Ur Barbiturates Screen Ur Phencyclidine Scrn Ur Amphetamines Screen U Benzodiazepines Scrn Urine Cocaine Screen U Marijuana (THC) Screen COVID-19 (DELIA) COVID-19 Clin Com Meds/Allergies Meds Home Medications Medication Instructions Recorded Confirmed Type fluphenazine HCl 5 mg tablet 1 tab PO BID PRN manic episodes 03/24/22 04/12/22 History fluphenazine decanoate 25 mg/mL 12.5 mg IM Q2W 03/24/22 04/12/22 History injection solution clonidine HCl 0.1 mg tablet 0.5 tab PO QID PRN Anxiety 04/12/22 04/12/22 History melatonin 3 mg tablet 6 mg PO BEDTIME 04/12/22 04/12/22 History nicotine (polacrilex) 4 mg gum 4 mg buccal Q2H PRN Nicotine 04/12/22 04/12/22 History Cravings olanzapine 5 mg tablet 5 mg PO QAM 04/12/22 04/12/22 History olanzapine 5 mg tablet 10 mg PO BEDTIME 04/12/22 04/12/22 History thiamine HCl (vitamin B1) 100 mg 100 mg PO DAILY 04/12/22 04/12/22 History tablet (Vitamin B-1) trazodone 50 mg tablet 1 tab PO DAILY PRN insomnia 04/12/22 04/12/22 History valacyclovir 500 mg tablet 1 tab PO BID 04/12/22 04/12/22 History Allergies Allergies Allergy/AdvReac Type Severity Reaction Status Date / Time iodine AdvReac Severe Difficulty Verified 04/12/22 20:26 Breathing shellfish derived AdvReac Intermediate Swelling Verified 04/12/22 20:26 Mental Status Exam Mental Status Exam Narrative: Bert was seen the morning after his admission. He is alert, oriented and pleasant. Speech is slightly pressured. Moderate eye contact. Affect is appropriate and varied. He denies any auditory or visual hallucinations. No overt delusions. He has been observed to be somewhat paranoid and at times delusional. He denies any suicidal or homicidal ideations. Cognitively he is intact with tangential thought processes. Judgment is mostly intact. Assessment & Plan Assessment & Plan (1) Schizophrenia: Status: Acute Code(s): F20.9 - Schizophrenia, unspecified Plan 04/14: Lia was admitted for stabilization secondary to disorganized thinking and paranoid ideations. Current medications were continued. At his request clonidine was raised to 0.1 mg t.i.d. p.r.n.. His other medications were maintained with no changes. He will meet with his treatment team on 04/17. Outpatient referral to be made to [facility] Patient educated on: diagnosis, medication risk/benefits and substance abuse Reason for continued inpatient stay Substantial Risk for: med/psych decompensation Statement Statement: I have reviewed the history and physical and performed a pertinent examination on my patient. No changes have occurred unless specified. If the History and Physical was not performed prior to admission, the Hospitalist's service will be consulted for completing the admission physical. Time Spent With Patient Time: Total time managing care of this patient today ____ minutes.
[2022-04-14 09:40] LABS: Alanine Aminotransferase 15 U/L (0-40); Albumin Level 4.2 g/dL (3.5-5.0); Alkaline Phosphatase 85 U/L (39-117); Anion Gap 10 (12-20); Aspartate Amino Transferase 19 U/L (5-37); Bilirubin Total 0.4 mg/dL (0.0-1.0); Blood Urea Nitrogen 10 mg/dL (9-16); Calcium 9.6 mg/dL (8.4-10.2); Carbon Dioxide 30 mmol/L (22-29); Chloride 102 mmol/L (96-108); Cholesterol 196 mg/dL; Creatinine Clr Calc Pharmacy 84.5; Estimated Glomerular Filt Rate > 60; Free T4 (Free Thyroxine) 1.06 ng/dL (0.71-1.85); Glucose Fasting 53 mg/dL (60-99); HDL Cholesterol 50 mg/dL; LDL Cholesterol Calculated 130 mg/dl; Magnesium 2.3 mg/dL (1.6-2.6); Potassium 4.7 mmol/L (3.3-5.1); Sodium 137 mmol/L (135-145); Thyroid Stimulating Hormone 1.45 uIU/mL (0.32-4.0); Total Protein 7.5 g/dL (6.5-8.0); Triglycerides 81 mg/dL
[2022-04-14 10:13] LABS: Folate 12.9 ng/mL (> or = 4.0); Vitamin B12 496 pg/mL (200-900)
[2022-04-14] MEDS: cloNIDine HCL 0.1 MG TABLET PO ×2 (13:02→19:36)
[2022-04-14 16:45] VITALS: BP 115/62; PULSE 85; TEMP 36.8
[2022-04-14] MEDS: fluPHENAZine HCl 5 MG TABLET PO (17:29)
[2022-04-14 19:30] VITALS: BP 138/74; PULSE 79
[2022-04-14] MEDS: OLANZapine 10 MG TABLET PO (20:05)
[2022-04-14] MEDS: Milk of Magnesia 30 ML ORAL.SUSP PO (20:05)
[2022-04-14] MEDS: traZODone HCL 50 MG TABLET PO (20:05)
[2022-04-15] MEDS: hydrOXYzine HCL 25 MG TABLET PO ×3 (04:40→15:03)
[2022-04-15] MEDS: Nicotine Polacrilex 2 MG GUM 4 MG BUCCAL ×9 (04:40→20:09)
[2022-04-15] MEDS: fluPHENAZine HCl 5 MG TABLET PO ×2 (07:38→18:31)
[2022-04-15 08:00] VITALS: BP 112/73; PULSE 90; TEMP 36.7; O2SAT 97
--- NOTE | 2022-04-15 08:04 | HO.PSYCHPN ---
Subjective Subjective Date of Service: 04/15/22 Reason For Visit: Schizophrenia Subjective Notes: Conditional Voluntary Healthcare Proxy: No Guardianship: No Medical Problems Affecting Mental Status: No Interim History: Patient was seen and discussed in rounds. Records and plans were reviewed. He states that he is doing better back on his medications. He denies any side effects. Yesterday his fasting glucose was 53 and he was asymptomatic. I will check this with a point of care this morning. This was reported to be 82. He is still asymptomatic. He has been sleeping adequately. He is eating well. No complaints. No SI. No auditory or visual hallucinations. No overt delusions He is also stating that the medications he was on at [facility] is different to what we have here. He does have his discharge papers which I will review with him once he gets it from his back and make appropriate adjustments. Medication Compliance: Yes Side effects from medications: No Attending Groups: Yes Review of Systems Review of Systems Yes all other systems are reviewed and are negative Mental Status Exam Mental Status Exam Narrative: He is alert, oriented and pleasant. Speech is slightly pressured. Moderate eye contact. Affect is appropriate and varied. He denies any auditory or visual hallucinations. No overt delusions. He has been observed to be somewhat paranoid and at times delusional. He denies any suicidal or homicidal ideations. Cognitively he is intact with tangential thought processes. Judgment is mostly intact. Diagnostics Vital Signs (24Hr): Vital Signs - 24 hr 04/14/22 16:45 04/14/22 19:30 Temperature 98.2 F Pulse Rate 85 79 Blood Pressure 115/62 138/74 BMI result Body Mass Index 22.7 Labs Results: 04/14/22 07:57 04/14/22 07:57 Labs: Laboratory Results - last 48 hr 04/14/22 04/14/22 04/14/22 07:57 07:57 07:57 WBC 2.9 L RBC 4.76 Hgb 13.5 L Hct 41.3 L MCV 86.8 MCH 28.4 MCHC 32.7 RDW 14.3 Plt Count 228 MPV 9.9 Immature Gran % (Auto) 0.3 Neut % (Auto) 33.2 L Lymph % (Auto) 52.6 H Norton % (Auto) 10.1 Eos % (Auto) 3.1 Baso % (Auto) 0.7 Lymph # (Auto) 1.5 Norton # (Auto) 0.3 Eos # (Auto) 0.1 Baso # (Auto) 0.0 Abs Immat Gran (auto) 0.01 Absolute Neuts (auto) 1.0 L Absolute Nucleated RBC 0.000 Nucleated RBC % (auto) 0.0 Smear Tech's Comments VERIFIED Sodium 137 Potassium 4.7 Chloride 102 Carbon Dioxide 30 H Anion Gap 10 L BUN 10 Creatinine 1.07 Estim Creat Clear Calc 84.5 Estimated GFR > 60 Fasting Glucose 53 L* Estimat Average Glucose 105 Hemoglobin A1c % 5.3 Calcium 9.6 Magnesium 2.3 Total Bilirubin 0.4 AST 19 ALT 15 Alkaline Phosphatase 85 Total Protein 7.5 Albumin 4.2 Triglycerides 81 Cholesterol 196 LDL Cholesterol, Calc 130 HDL Cholesterol 50 Vitamin B12 Folate TSH 1.45 Free T4 1.06 04/14/22 07:57 WBC RBC Hgb Hct MCV MCH MCHC RDW Plt Count MPV Immature Gran % (Auto) Neut % (Auto) Lymph % (Auto) Norton % (Auto) Eos % (Auto) Baso % (Auto) Lymph # (Auto) Norton # (Auto) Eos # (Auto) Baso # (Auto) Abs Immat Gran (auto) Absolute Neuts (auto) Absolute Nucleated RBC Nucleated RBC % (auto) Smear Tech's Comments Sodium Potassium Chloride Carbon Dioxide Anion Gap BUN Creatinine Estim Creat Clear Calc Estimated GFR Fasting Glucose Estimat Average Glucose Hemoglobin A1c % Calcium Magnesium Total Bilirubin AST ALT Alkaline Phosphatase Total Protein Albumin Triglycerides Cholesterol LDL Cholesterol, Calc HDL Cholesterol Vitamin B12 496 Folate 12.9 TSH Free T4 Medications Medications Current Medications Acetaminophen (Acetaminophen 325 Mg Tablet) 650 mg PO Q6H PRN PRN Reason: Headache/Pain Mild Scale (1-3) Al Hydroxide/Mg Hydroxide (Magnesium Hydrox/Alum Hydrox 30 Ml Oral.Susp) 30 ml PO Q6H PRN PRN Reason: Heartburn/Nausea Clonidine HCl (Clonidine Hcl 0.1 Mg Tablet) 0.1 mg PO TID PRN; Protocol PRN Reason: Anxiety Last Admin: 04/14/22 19:36 Dose: 0.1 mg Fluphenazine Decanoate (Fluphenazine Decanoate 25 Mg/Ml 5 Ml Vial) 12.5 mg IM Q14D MIKAYLA Fluphenazine HCl (Fluphenazine Hcl 5 Mg Tablet) 5 mg PO BID PRN PRN Reason: manic episodes Last Admin: 04/15/22 07:38 Dose: 5 mg Hydroxyzine HCl (Hydroxyzine Hcl 25 Mg Tablet) 25 mg PO Q4H PRN PRN Reason: Anxiety Last Admin: 04/15/22 04:40 Dose: 25 mg Magnesium Hydroxide (Milk Of Magnesia 30 Ml Oral.Susp) 30 ml PO DAILY PRN PRN Reason: Constipation Last Admin: 04/14/22 20:05 Dose: 30 ml Melatonin (Melatonin 3 Mg Tablet) 6 mg PO BEDTIME MIKAYLA Last Admin: 04/14/22 20:11 Dose: Not Given Nicotine Polacrilex (Nicotine Polacrilex 2 Mg Gum) 4 mg BUCCAL Q2H PRN PRN Reason: Nicotine Cravings Last Admin: 04/15/22 07:38 Dose: 4 mg Olanzapine (Olanzapine 10 Mg Tablet) 10 mg PO BEDTIME MIKAYLA Last Admin: 04/14/22 20:05 Dose: 10 mg Olanzapine (Olanzapine 5 Mg Tablet) 5 mg PO DAILY MIKAYLA Last Admin: 04/14/22 08:10 Dose: 5 mg Thiamine HCl (Thiamine Hcl 100 Mg Tablet) 100 mg PO DAILY MIKAYLA Last Admin: 04/14/22 08:10 Dose: 100 mg Trazodone HCl (Trazodone Hcl 50 Mg Tablet) 50 mg PO DAILY PRN PRN Reason: insomnia Last Admin: 04/14/22 20:05 Dose: 50 mg Valacyclovir HCl (Valacyclovir Hcl 500 Mg Tablet) 500 mg PO BID MIKAYLA Last Admin: 04/14/22 20:04 Dose: 500 mg Allergies Allergies Allergy/AdvReac Type Severity Reaction Status Date / Time iodine AdvReac Severe Difficulty Verified 04/12/22 20:26 Breathing shellfish derived AdvReac Intermediate Swelling Verified 04/12/22 20:26 Assessment & Plan Assessment & Plan (1) Schizophrenia: Status: Acute Code(s): F20.9 - Schizophrenia, unspecified Plan 04/14: Canal was admitted for stabilization secondary to disorganized thinking and paranoid ideations. Current medications were continued. At his request clonidine was raised to 0.1 mg t.i.d. p.r.n.. His other medications were maintained with no changes. He will meet with his treatment team on 04/17. Outpatient referral to be made to [facility] 04/15: Continue current regimen and plans. Patient educated on: medication risk/benefits Reason for contiued inpatient stay Substantial Risk for: med/psych decompensation Time Spent With Patient Time: Total time managing care of this patient today ____ minutes.
[2022-04-15] MEDS: OLANZapine 5 MG TABLET PO (08:21)
[2022-04-15] MEDS: valACYclovir HCL 500 MG TABLET PO ×2 (08:21→20:10)
[2022-04-15] MEDS: Thiamine HCL 100 MG TABLET PO (08:21)
[2022-04-15] MEDS: cloNIDine HCL 0.1 MG TABLET PO ×2 (09:06→18:31)
[2022-04-15] MEDS: Milk of Magnesia 30 ML ORAL.SUSP PO (11:25)
[2022-04-15 16:25] VITALS: BP 109/64; PULSE 64; TEMP 37.2; O2SAT 99
[2022-04-15] MEDS: OLANZapine 10 MG TABLET PO (20:10)
[2022-04-15] MEDS: traZODone HCL 50 MG TABLET PO (20:11)
[2022-04-16] MEDS: Nicotine Polacrilex 2 MG GUM 4 MG BUCCAL ×10 (03:43→23:05)
[2022-04-16] MEDS: hydrOXYzine HCL 25 MG TABLET PO ×5 (03:44→21:34)
[2022-04-16] MEDS: fluPHENAZine HCl 5 MG TABLET PO ×2 (04:27→20:02)
[2022-04-16 06:00] VITALS: BP 113/72; PULSE 73; RESP 16; TEMP 37.1; O2SAT 99
[2022-04-16] MEDS: cloNIDine HCL 0.1 MG TABLET PO ×2 (06:31→15:58)
[2022-04-16 08:16] LABS: Glucose Fasting 69 mg/dL (60-99)
[2022-04-16] MEDS: Thiamine HCL 100 MG TABLET PO (08:26)
[2022-04-16] MEDS: valACYclovir HCL 500 MG TABLET PO ×2 (08:26→20:02)
[2022-04-16] MEDS: OLANZapine 5 MG TABLET PO (08:26)
[2022-04-16 09:25] VITALS: BP 109/53; PULSE 67; RESP 14; TEMP 36.6; O2SAT 99
--- NOTE | 2022-04-16 09:51 | HO.PSYCHPN ---
Subjective Subjective Date of Service: 04/16/22 Reason For Visit: Schizophrenia Subjective Notes: Conditional Voluntary Healthcare Proxy: No Guardianship: No Medical Problems Affecting Mental Status: No Interim History: Patient was seen and discussed in rounds. Records and plans were reviewed. He has been stable and is doing quite well with no complaints. His blood sugar was repeated this morning and was 69 which is within range but at the lower end. He continues to be asymptomatic. Eating and sleeping adequately. No complaints. No changes were made Medication Compliance: Yes Side effects from medications: No Attending Groups: Yes Review of Systems Review of Systems Yes all other systems are reviewed and are negative Mental Status Exam Mental Status Exam Narrative: He is alert, oriented and pleasant. Speech is slightly pressured. Moderate eye contact. Affect is appropriate and varied. He denies any auditory or visual hallucinations. No overt delusions. He has been observed to be somewhat paranoid and at times delusional. He denies any suicidal or homicidal ideations. Cognitively he is intact with tangential thought processes. Judgment is mostly intact. Diagnostics Vital Signs (24Hr): Vital Signs - 24 hr 04/15/22 16:25 04/16/22 06:00 04/16/22 09:25 Temperature 98.9 F 98.7 F 97.9 F Pulse Rate 64 73 67 Respiratory Rate 16 14 Blood Pressure 109/64 113/72 109/53 L Pulse Oximetry 99 99 99 Oxygen Delivery Method Room Air Room Air BMI result Body Mass Index 22.7 Labs Results: 04/14/22 07:57 04/14/22 07:57 Labs: Laboratory Results - last 48 hr 04/14/22 04/15/22 04/16/22 07:57 08:07 07:38 POC Glucose 82 Fasting Glucose 69 Vitamin B12 496 Folate 12.9 Medications Medications Current Medications Acetaminophen (Acetaminophen 325 Mg Tablet) 650 mg PO Q6H PRN PRN Reason: Headache/Pain Mild Scale (1-3) Al Hydroxide/Mg Hydroxide (Magnesium Hydrox/Alum Hydrox 30 Ml Oral.Susp) 30 ml PO Q6H PRN PRN Reason: Heartburn/Nausea Clonidine HCl (Clonidine Hcl 0.1 Mg Tablet) 0.1 mg PO TID PRN; Protocol PRN Reason: Anxiety Last Admin: 04/16/22 06:31 Dose: 0.1 mg Fluphenazine HCl (Fluphenazine Hcl 5 Mg Tablet) 5 mg PO BID PRN PRN Reason: manic episodes Last Admin: 04/16/22 04:27 Dose: 5 mg Hydroxyzine HCl (Hydroxyzine Hcl 25 Mg Tablet) 25 mg PO Q4H PRN PRN Reason: Anxiety Last Admin: 04/16/22 08:32 Dose: 25 mg Magnesium Hydroxide (Milk Of Magnesia 30 Ml Oral.Susp) 30 ml PO DAILY PRN PRN Reason: Constipation Last Admin: 04/15/22 11:25 Dose: 30 ml Melatonin (Melatonin 3 Mg Tablet) 6 mg PO BEDTIME MIKAYLA Last Admin: 04/15/22 20:12 Dose: Not Given Nicotine Polacrilex (Nicotine Polacrilex 2 Mg Gum) 4 mg BUCCAL Q2H PRN PRN Reason: Nicotine Cravings Last Admin: 04/16/22 08:28 Dose: 4 mg Olanzapine (Olanzapine 10 Mg Tablet) 10 mg PO BEDTIME MIKAYLA Last Admin: 04/15/22 20:10 Dose: 10 mg Olanzapine (Olanzapine 5 Mg Tablet) 5 mg PO DAILY MIKAYLA Last Admin: 04/16/22 08:26 Dose: 5 mg Thiamine HCl (Thiamine Hcl 100 Mg Tablet) 100 mg PO DAILY MIKAYLA Last Admin: 04/16/22 08:26 Dose: 100 mg Trazodone HCl (Trazodone Hcl 50 Mg Tablet) 50 mg PO DAILY PRN PRN Reason: insomnia Last Admin: 04/15/22 20:11 Dose: 50 mg Valacyclovir HCl (Valacyclovir Hcl 500 Mg Tablet) 500 mg PO BID [facility] Last Admin: 04/16/22 08:26 Dose: 500 mg Allergies Allergies Allergy/AdvReac Type Severity Reaction Status Date / Time iodine AdvReac Severe Difficulty Verified 04/12/22 20:26 Breathing shellfish derived AdvReac Intermediate Swelling Verified 04/12/22 20:26 Assessment & Plan Assessment & Plan (1) Schizophrenia: Status: Acute Code(s): F20.9 - Schizophrenia, unspecified Plan 04/14: Bert was admitted for stabilization secondary to disorganized thinking and paranoid ideations. Current medications were continued. At his request clonidine was raised to 0.1 mg t.i.d. p.r.n.. His other medications were maintained with no changes. He will meet with his treatment team on 04/17. Outpatient referral to be made to [facility] 04/15: Continue current regimen and plans. 04/16: Continue current regimen and plans Reason for contiued inpatient stay Substantial Risk for: med/psych decompensation Time Spent With Patient Time: Total time managing care of this patient today ____ minutes.
--- NOTE | 2022-04-16 16:04 | MHC.CLN ---
NUTRITION CONSULT 04/13 DUE TO PATIENT NOT EATING. PER PROVIDER NOTE 04/16, PATIENT EATING ADEQUATELY. RD DID NOT CONSULT DUE TO ADEQUATE PO.
[2022-04-16 16:55] VITALS: BP 120/64; PULSE 78; TEMP 36.6
[2022-04-16] MEDS: OLANZapine 10 MG TABLET PO (20:02)
[2022-04-16] MEDS: traZODone HCL 50 MG TABLET PO (23:04)
[2022-04-17] MEDS: Nicotine Polacrilex 2 MG GUM 4 MG BUCCAL ×7 (06:42→21:19)
[2022-04-17] MEDS: hydrOXYzine HCL 25 MG TABLET PO ×3 (06:42→17:22)
[2022-04-17] MEDS: valACYclovir HCL 500 MG TABLET PO ×2 (08:22→21:08)
[2022-04-17] MEDS: cloNIDine HCL 0.1 MG TABLET PO ×2 (08:23→15:42)
[2022-04-17] MEDS: fluPHENAZine HCl 5 MG TABLET PO (08:23)
[2022-04-17] MEDS: OLANZapine 5 MG TABLET PO (08:24)
[2022-04-17] MEDS: Thiamine HCL 100 MG TABLET PO (08:24)
[2022-04-17 08:43] VITALS: BP 99/58; PULSE 94; RESP 18; TEMP 36.2; O2SAT 94
--- NOTE | 2022-04-17 10:22 | P.PNPSI_ITS ---
Subjective Subjective Date of Service: 04/17/22 Reason For Visit: Schizophrenia Diagnostics Vital Signs (24Hr): Vital Signs - 24 hr 04/16/22 16:55 04/17/22 08:43 Temperature 98 F 97.2 F Pulse Rate 78 94 Respiratory Rate 18 Blood Pressure 120/64 99/58 L Pulse Oximetry 94 Oxygen Delivery Method Room Air BMI result Body Mass Index 22.7 Labs Results: 04/14/22 07:57 04/14/22 07:57 Labs: Laboratory Results - last 48 hr 04/16/22 07:38 Fasting Glucose 69 Medications Medications Current Medications Acetaminophen (Acetaminophen 325 Mg Tablet) 650 mg PO Q6H PRN PRN Reason: Headache/Pain Mild Scale (1-3) Al Hydroxide/Mg Hydroxide (Magnesium Hydrox/Alum Hydrox 30 Ml Oral.Susp) 30 ml PO Q6H PRN PRN Reason: Heartburn/Nausea Clonidine HCl (Clonidine Hcl 0.1 Mg Tablet) 0.1 mg PO TID PRN; Protocol PRN Reason: Anxiety Last Admin: 04/17/22 08:23 Dose: 0.1 mg Fluphenazine HCl (Fluphenazine Hcl 5 Mg Tablet) 5 mg PO BID PRN PRN Reason: manic episodes Last Admin: 04/17/22 08:23 Dose: 5 mg Hydroxyzine HCl (Hydroxyzine Hcl 25 Mg Tablet) 25 mg PO Q4H PRN PRN Reason: Anxiety Last Admin: 04/17/22 06:42 Dose: 25 mg Magnesium Hydroxide (Milk Of Magnesia 30 Ml Oral.Susp) 30 ml PO DAILY PRN PRN Reason: Constipation Last Admin: 04/15/22 11:25 Dose: 30 ml Melatonin (Melatonin 3 Mg Tablet) 6 mg PO BEDTIME MIKAYLA Last Admin: 04/16/22 16:35 Dose: Not Given Nicotine Polacrilex (Nicotine Polacrilex 2 Mg Gum) 4 mg BUCCAL Q2H PRN PRN Reason: Nicotine Cravings Last Admin: 04/17/22 09:36 Dose: 4 mg Olanzapine (Olanzapine 10 Mg Tablet) 10 mg PO BEDTIME MIKAYLA Last Admin: 04/16/22 20:02 Dose: 10 mg Olanzapine (Olanzapine 5 Mg Tablet) 5 mg PO DAILY MIKAYLA Last Admin: 04/17/22 08:24 Dose: 5 mg Thiamine HCl (Thiamine Hcl 100 Mg Tablet) 100 mg PO DAILY MIKAYLA Last Admin: 04/17/22 08:24 Dose: 100 mg Trazodone HCl (Trazodone Hcl 50 Mg Tablet) 50 mg PO DAILY PRN PRN Reason: insomnia Last Admin: 04/16/22 23:04 Dose: 50 mg Valacyclovir HCl (Valacyclovir Hcl 500 Mg Tablet) 500 mg PO BID MIKAYLA Last Admin: 04/17/22 08:22 Dose: 500 mg Allergies Allergies Allergy/AdvReac Type Severity Reaction Status Date / Time iodine AdvReac Severe Difficulty Verified 04/12/22 20:26 Breathing shellfish derived AdvReac Intermediate Swelling Verified 04/12/22 20:26 Assessment & Plan Assessment & Plan (1) Schizophrenia: Status: Acute Code(s): F20.9 - Schizophrenia, unspecified Plan 04/14: Bert was admitted for stabilization secondary to disorganized thinking and paranoid ideations. Current medications were continued. At his request clonidine was raised to 0.1 mg t.i.d. p.r.n.. His other medications were maintained with no changes. He will meet with his treatment team on 04/17. Outpatient referral to be made to [facility] 04/15: Continue current regimen and plans. 04/16: Continue current regimen and plans Time Spent With Patient Time: Total time managing care of this patient today ____ minutes.
[2022-04-17 14:24] VITALS: BP 122/64; PULSE 81; RESP 20; O2SAT 97
[2022-04-17] MEDS: Acetaminophen 325 MG TABLET 650 MG PO (17:22)
--- NOTE | 2022-04-17 17:48 | P.PNPSI_ITS ---
Subjective Subjective Date of Service: 04/17/22 Reason For Visit: Schizophrenia Subjective Notes: Conditional Voluntary Healthcare Proxy: No Guardianship: No Medical Problems Affecting Mental Status: No Interim History: Pt reports feeling well. Discussing discharge tentatively for 04/19/22. Reports some sedative effect from medications-?hydroxyzine vs clonidine, believes it to be clonidine, however both are helpful so he asks not to discontinue them. Medication Compliance: Yes Side effects from medications: Yes (tired) Attending Groups: Intermittent Review of Systems Acute medical concerns: No Medical Review of Systems: unchanged Mental Status Exam Mental Status Exam Patient Appearance: Appropriate Patient Orientation: Person, Place, Time and Situation Level of Consciousness: Alert Patient Behavior: Appropriate, Talkative, Cooperative and Good Eye Contact Mood Description: Appropriate Affect Description: Appropriate Patient Cognition Impaired: No Ability to Follow Directions: Good Speech Pattern: Spontaneous Speech Memory Description: Intact Hallucinations: None Delusions: Not Present Thought Process: Intact and Goal Oriented Thought Content: positive for Intact and positive for Goal Oriented Judgement: Good Diagnostics Vital Signs (24Hr): Vital Signs - 24 hr 04/17/22 08:43 04/17/22 14:24 Temperature 97.2 F Pulse Rate 94 81 Respiratory Rate 18 20 Blood Pressure 99/58 L 122/64 Pulse Oximetry 94 97 Oxygen Delivery Method Room Air Room Air BMI result Body Mass Index 22.7 Labs Results: 04/14/22 07:57 04/14/22 07:57 Labs: Laboratory Results - last 48 hr 04/16/22 07:38 Fasting Glucose 69 Medications Medications Current Medications Acetaminophen (Acetaminophen 325 Mg Tablet) 650 mg PO Q6H PRN PRN Reason: Headache/Pain Mild Scale (1-3) Last Admin: 04/17/22 17:22 Dose: 650 mg Al Hydroxide/Mg Hydroxide (Magnesium Hydrox/Alum Hydrox 30 Ml Oral.Susp) 30 ml PO Q6H PRN PRN Reason: Heartburn/Nausea Clonidine HCl (Clonidine Hcl 0.1 Mg Tablet) 0.1 mg PO TID PRN; Protocol PRN Reason: Anxiety Last Admin: 04/17/22 15:42 Dose: 0.1 mg Fluphenazine HCl (Fluphenazine Hcl 5 Mg Tablet) 5 mg PO BID PRN PRN Reason: manic episodes Last Admin: 04/17/22 08:23 Dose: 5 mg Hydroxyzine HCl (Hydroxyzine Hcl 25 Mg Tablet) 25 mg PO Q4H PRN PRN Reason: Anxiety Last Admin: 04/17/22 17:22 Dose: 25 mg Magnesium Hydroxide (Milk Of Magnesia 30 Ml Oral.Susp) 30 ml PO DAILY PRN PRN Reason: Constipation Last Admin: 04/15/22 11:25 Dose: 30 ml Melatonin (Melatonin 3 Mg Tablet) 6 mg PO BEDTIME MIKAYLA Last Admin: 04/16/22 16:35 Dose: Not Given Nicotine Polacrilex (Nicotine Polacrilex 2 Mg Gum) 4 mg BUCCAL Q2H PRN PRN Reason: Nicotine Cravings Last Admin: 04/17/22 15:40 Dose: 4 mg Olanzapine (Olanzapine 10 Mg Tablet) 10 mg PO BEDTIME MIKAYLA Last Admin: 04/16/22 20:02 Dose: 10 mg Olanzapine (Olanzapine 5 Mg Tablet) 5 mg PO DAILY [facility] Last Admin: 04/17/22 08:24 Dose: 5 mg Thiamine HCl (Thiamine Hcl 100 Mg Tablet) 100 mg PO DAILY [facility] Last Admin: 04/17/22 08:24 Dose: 100 mg Trazodone HCl (Trazodone Hcl 50 Mg Tablet) 50 mg PO DAILY PRN PRN Reason: insomnia Last Admin: 04/16/22 23:04 Dose: 50 mg Valacyclovir HCl (Valacyclovir Hcl 500 Mg Tablet) 500 mg PO BID [facility] Last Admin: 04/17/22 08:22 Dose: 500 mg Allergies Allergies Allergy/AdvReac Type Severity Reaction Status Date / Time iodine AdvReac Severe Difficulty Verified 04/12/22 20:26 Breathing shellfish derived AdvReac Intermediate Swelling Verified 04/12/22 20:26 Assessment & Plan Assessment & Plan (1) Schizophrenia: Status: Acute Code(s): F20.9 - Schizophrenia, unspecified Plan 04/14: Bert was admitted for stabilization secondary to disorganized thinking and paranoid ideations. Current medications were continued. At his request clonidine was raised to 0.1 mg t.i.d. p.r.n.. His other medications were maintained with no changes. He will meet with his treatment team on 04/17. Outpatient referral to be made to [facility] 04/15: Continue current regimen and plans. 04/16: Continue current regimen and plans 04/17/22: Continue current regime and plan of care. Patient educated on: medication risk/benefits and therapeutic strategies Informed Consent: understands Reason for contiued inpatient stay Substantial Risk for: rapid decompensation Time Spent With Patient Time: Total time managing care of this patient today __30__ minutes.
[2022-04-17 18:00] VITALS: BP 125/81; PULSE 87; RESP 20; TEMP 37.3; O2SAT 99
[2022-04-17] MEDS: traZODone HCL 50 MG TABLET PO (21:08)
[2022-04-17] MEDS: Melatonin 3 MG TABLET 6 MG PO (21:08)
[2022-04-17] MEDS: OLANZapine 10 MG TABLET PO (21:09)
[2022-04-18] MEDS: hydrOXYzine HCL 25 MG TABLET PO ×4 (03:51→20:15)
[2022-04-18] MEDS: Nicotine Polacrilex 2 MG GUM 4 MG BUCCAL ×7 (03:51→20:15)
[2022-04-18] MEDS: cloNIDine HCL 0.1 MG TABLET PO ×2 (05:32→11:07)
[2022-04-18 08:07] LABS: Cholesterol 180 mg/dL; HDL Cholesterol 54 mg/dL; LDL Cholesterol Calculated 102 mg/dl; Triglycerides 124 mg/dL
[2022-04-18 08:11] LABS: Estimated Average Glucose 103 mg/dL; Hemoglobin A1c % 5.2 %
[2022-04-18] MEDS: Thiamine HCL 100 MG TABLET PO (08:13)
[2022-04-18] MEDS: OLANZapine 5 MG TABLET PO (08:13)
[2022-04-18] MEDS: valACYclovir HCL 500 MG TABLET PO ×2 (08:13→20:15)
[2022-04-18] MEDS: fluPHENAZine HCl 5 MG TABLET PO ×3 (08:17→20:15)
[2022-04-18 10:06] VITALS: BP 114/60; PULSE 67; RESP 16; TEMP 37.3; O2SAT 97
[2022-04-18 14:29] LABS: COVID-19 Test Negative (Negative); IDNOW Serial# 9DB6401D
--- NOTE | 2022-04-18 17:25 | P.PNPSI_ITS ---
Subjective Subjective Date of Service: 04/18/22 Reason For Visit: Schizophrenia Subjective Notes: Conditional Voluntary Healthcare Proxy: No Guardianship: No Medical Problems Affecting Mental Status: No Interim History: Bert reports feeling well. He is pleased for discharge on 04/19 and looking forward to his PHP intake. Med review completed. Pt discussed increase of Prolixin po to tid as he finds this helpful Medication Compliance: Yes Side effects from medications: No Attending Groups: Intermittent Review of Systems Acute medical concerns: No Medical Review of Systems: unchanged Mental Status Exam Mental Status Exam Patient Appearance: Appropriate Patient Orientation: Person, Place, Time and Situation Level of Consciousness: Alert Patient Behavior: Appropriate, Talkative, Cooperative and Good Eye Contact Mood Description: Appropriate Affect Description: Appropriate Patient Cognition Impaired: No Ability to Follow Directions: Good Speech Pattern: Spontaneous Speech Memory Description: Intact Hallucinations: None Delusions: Not Present Thought Process: Intact and Goal Oriented Thought Content: positive for Intact and positive for Goal Oriented Judgement: Good Diagnostics Vital Signs (24Hr): Vital Signs - 24 hr 04/17/22 18:00 04/18/22 10:06 Temperature 99.1 F 99.2 F Pulse Rate 87 67 Respiratory Rate 20 16 Blood Pressure 125/81 114/60 Pulse Oximetry 99 97 Oxygen Delivery Method Room Air BMI result Body Mass Index 22.7 Labs Results: 04/14/22 07:57 04/14/22 07:57 Labs: Laboratory Results - last 48 hr 04/18/22 04/18/22 04/18/22 07:24 07:24 13:40 Estimat Average Glucose 103 Hemoglobin A1c % 5.2 Triglycerides 124 Cholesterol 180 LDL Cholesterol, Calc 102 HDL Cholesterol 54 COVID-19 (DELIA) Negative COVID-19 Clin Com See Note Medications Medications Current Medications Acetaminophen (Acetaminophen 325 Mg Tablet) 650 mg PO Q6H PRN PRN Reason: Headache/Pain Mild Scale (1-3) Last Admin: 04/17/22 17:22 Dose: 650 mg Al Hydroxide/Mg Hydroxide (Magnesium Hydrox/Alum Hydrox 30 Ml Oral.Susp) 30 ml PO Q6H PRN PRN Reason: Heartburn/Nausea Clonidine HCl (Clonidine Hcl 0.1 Mg Tablet) 0.1 mg PO TID PRN; Protocol PRN Reason: Anxiety Last Admin: 04/18/22 11:07 Dose: 0.1 mg Fluphenazine HCl (Fluphenazine Hcl 5 Mg Tablet) 5 mg PO TID PRN PRN Reason: manic episodes Last Admin: 04/18/22 14:53 Dose: 5 mg Hydroxyzine HCl (Hydroxyzine Hcl 25 Mg Tablet) 25 mg PO Q4H PRN PRN Reason: Anxiety Last Admin: 04/18/22 15:35 Dose: 25 mg Magnesium Hydroxide (Milk Of Magnesia 30 Ml Oral.Susp) 30 ml PO DAILY PRN PRN Reason: Constipation Last Admin: 04/15/22 11:25 Dose: 30 ml Nicotine Polacrilex (Nicotine Polacrilex 2 Mg Gum) 4 mg BUCCAL Q2H PRN PRN Reason: Nicotine Cravings Last Admin: 04/18/22 14:53 Dose: 4 mg Olanzapine (Olanzapine 10 Mg Tablet) 10 mg PO BEDTIME MIKAYLA Last Admin: 04/17/22 21:09 Dose: 10 mg Olanzapine (Olanzapine 5 Mg Tablet) 5 mg PO DAILY MIKAYLA Last Admin: 04/18/22 08:13 Dose: 5 mg Thiamine HCl (Thiamine Hcl 100 Mg Tablet) 100 mg PO DAILY MIKAYLA Last Admin: 04/18/22 08:13 Dose: 100 mg Trazodone HCl (Trazodone Hcl 50 Mg Tablet) 50 mg PO DAILY PRN PRN Reason: insomnia Last Admin: 04/17/22 21:08 Dose: 50 mg Valacyclovir HCl (Valacyclovir Hcl 500 Mg Tablet) 500 mg PO BID [facility] Last Admin: 04/18/22 08:13 Dose: 500 mg Allergies Allergies Allergy/AdvReac Type Severity Reaction Status Date / Time iodine AdvReac Severe Difficulty Verified 04/12/22 20:26 Breathing shellfish derived AdvReac Intermediate Swelling Verified 04/12/22 20:26 Assessment & Plan Assessment & Plan (1) Schizophrenia: Status: Acute Code(s): F20.9 - Schizophrenia, unspecified Plan 04/14: Bert was admitted for stabilization secondary to disorganized thinking and paranoid ideations. Current medications were continued. At his request clonidine was raised to 0.1 mg t.i.d. p.r.n.. His other medications w ere maintained with no changes. He will meet with his treatment team on 04/17. Outpatient referral to be made to [facility] 04/15: Continue current regimen and plans. 04/16: Continue current regimen and plans 04/17/22: Continue current regime and plan of care. 04/18/22: Continue current regime and plan of care Discharge 04/19/22 Pt plans PHP eval and attendance if accepted Patient educated on: medication risk/benefits and therapeutic strategies Informed Consent: understands and further education needed Reason for contiued inpatient stay Substantial Risk for: inability to function and rapid decompensation Time Spent With Patient Time: Total time managing care of this patient today __20__ minutes.
[2022-04-18] MEDS: OLANZapine 10 MG TABLET PO (20:15)
[2022-04-18 20:24] VITALS: BP 119/66; PULSE 74; RESP 16; TEMP 37; O2SAT 99
[2022-04-19] MEDS: hydrOXYzine HCL 25 MG TABLET PO ×3 (02:29→10:45)
[2022-04-19] MEDS: Nicotine Polacrilex 2 MG GUM 4 MG BUCCAL ×5 (02:29→13:46)
[2022-04-19] MEDS: fluPHENAZine HCl 5 MG TABLET PO (05:42)
[2022-04-19 06:00] VITALS: BP 114/71; PULSE 74; RESP 16; TEMP 36.7; O2SAT 100
[2022-04-19] MEDS: OLANZapine 5 MG TABLET PO (07:48)
[2022-04-19] MEDS: valACYclovir HCL 500 MG TABLET PO (07:48)
[2022-04-19] MEDS: Thiamine HCL 100 MG TABLET PO (07:48)
[2022-04-19] MEDS: cloNIDine HCL 0.1 MG TABLET PO (13:45)
--- NOTE | 2022-04-19 17:41 | P.DS_ITS ---
DS: Providers Provider Date of Service: 04/19/22 Date of admission: 04/13/22 15:48 Date of discharge: 04/19/22 Primary care physician: Unknown Physician Admitting clinician: Ca Galo Attending physician on admission: Ca Galo Attending physician on discharge: Pérez Henriquez Discharging clinician: Britany Abbott DS: Diagnosis Discharge Diagnosis (1) Schizophrenia: Status: Acute DS: Medications Discharge Medications Home Medications: Previous Rx's Medication Instructions Recorded clonidine HCl 0.1 mg tablet 0.5 tab PO QID PRN Anxiety #60 tabs 04/19/22 fluphenazine HCl 5 mg tablet 5 mg PO TID PRN manic episodes #90 04/19/22 tabs fluphenazine decanoate 25 mg/mL 12.5 mg (0.5 mL) IM Q2W #1 kit 04/19/22 injection solution hydroxyzine HCl 25 mg tablet 25 mg PO Q4H PRN Anxiety #30 tabs 04/19/22 nicotine (polacrilex) 4 mg gum 4 mg buccal Q2H PRN Nicotine 04/19/22 Cravings #60 ea olanzapine 5 mg tablet 5 mg PO QAM #30 tabs 04/19/22 olanzapine 5 mg tablet 10 mg PO BEDTIME #30 tabs 04/19/22 thiamine HCl (vitamin B1) 100 mg 100 mg PO DAILY #30 tabs 04/19/22 tablet (Vitamin B-1) trazodone 50 mg tablet 1 tab PO DAILY PRN insomnia #30 04/19/22 tabs valacyclovir 500 mg tablet 1 tab PO BID #60 tabs 04/19/22 Mental Status Exam Mental Status Exam Patient Appearance: Appropriate Patient Orientation: Person, Place, Time and Situation Level of Consciousness: Alert Patient Behavior: Appropriate, Talkative, Cooperative and Good Eye Contact Mood Description: Appropriate Affect Description: Appropriate Patient Cognition Impaired: No Ability to Follow Directions: Good Speech Pattern: Spontaneous Speech Memory Description: Intact Hallucinations: None Delusions: Not Present Thought Process: Intact and Goal Oriented Thought Content: positive for Intact and positive for Goal Oriented Judgement: Good Data Data Completed and Pending Completed studies during hospitalization [Text1]: 04/14/22 04/14/22 04/14/22 07:57 07:57 07:57 WBC 2.9 L RBC 4.76 Hgb 13.5 L Hct 41.3 L MCV 86.8 MCH 28.4 MCHC 32.7 RDW 14.3 Plt Count 228 MPV 9.9 Immature Gran % (Auto) 0.3 Neut % (Auto) 33.2 L Lymph % (Auto) 52.6 H Park % (Auto) 10.1 Eos % (Auto) 3.1 Baso % (Auto) 0.7 Lymph # (Auto) 1.5 Park # (Auto) 0.3 Eos # (Auto) 0.1 Baso # (Auto) 0.0 Abs Immat Gran (auto) 0.01 Absolute Neuts (auto) 1.0 L Absolute Nucleated RBC 0.000 Nucleated RBC % (auto) 0.0 Smear Tech's Comments VERIFIED Sodium 137 Potassium 4.7 Chloride 102 Carbon Dioxide 30 H Anion Gap 10 L BUN 10 Creatinine 1.07 Estim Creat Clear Calc 84.5 Estimated GFR > 60 POC Glucose Fasting Glucose 53 L* Estimat Average Glucose 105 Hemoglobin A1c % 5.3 Calcium 9.6 Magnesium 2.3 Total Bilirubin 0.4 AST 19 ALT 15 Alkaline Phosphatase 85 Total Protein 7.5 Albumin 4.2 Triglycerides 81 Cholesterol 196 LDL Cholesterol, Calc 130 HDL Cholesterol 50 Vitamin B12 Folate TSH 1.45 Free T4 1.06 COVID-19 (DELIA) [employer] 04/14/22 04/15/22 04/16/22 07:57 08:07 07:38 WBC RBC Hgb Hct MCV MCH MCHC RDW Plt Count MPV Immature Gran % (Auto) Neut % (Auto) Lymph % (Auto) Park % (Auto) Eos % (Auto) Baso % (Auto) Lymph # (Auto) Park # (Auto) Eos # (Auto) Baso # (Auto) Abs Immat Gran (auto) Absolute Neuts (auto) Absolute Nucleated RBC Nucleated RBC % (auto) Smear Tech's Comments Sodium Potassium Chloride Carbon Dioxide Anion Gap BUN Creatinine Estim Creat Clear Calc Estimated GFR POC Glucose 82 Fasting Glucose 69 Estimat Average Glucose Hemoglobin A1c % Calcium Magnesium Total Bilirubin AST ALT Alkaline Phosphatase Total Protein Albumin Triglycerides Cholesterol LDL Cholesterol, Calc HDL Cholesterol Vitamin B12 496 Folate 12.9 TSH Free T4 COVID-19 (DELIA) [employer] 04/18/22 04/18/22 04/18/22 07:24 07:24 13:40 WBC RBC Hgb Hct MCV MCH MCHC RDW Plt Count MPV Immature Gran % (Auto) Neut % (Auto) Lymph % (Auto) Park % (Auto) Eos % (Auto) Baso % (Auto) Lymph # (Auto) Park # (Auto) Eos # (Auto) Baso # (Auto) Abs Immat Gran (auto) Absolute Neuts (auto) Absolute Nucleated RBC Nucleated RBC % (auto) Smear Tech's Comments Sodium Potassium Chloride Carbon Dioxide Anion Gap BUN Creatinine Estim Creat Clear Calc Estimated GFR POC Glucose Fasting Glucose Estimat Average Glucose 103 Hemoglobin A1c % 5.2 Calcium Magnesium Total Bilirubin AST ALT Alkaline Phosphatase Total Protein Albumin Triglycerides 124 Cholesterol 180 LDL Cholesterol, Calc 102 HDL Cholesterol 54 Vitamin B12 Folate TSH Free T4 COVID-19 (DELIA) Negative COVID-19 Clin Com See Note DS: Summary Hospital Course Hospital Course: Admission to adult psychiatry for exacerbation of symptoms of schizophrenia. Prolixin Decanoate was maintainted. Olanzapine was maintained. Prolixin po prn was increased which pt found to be helpful and not oversedative to manage symptoms. Pt will attend [facility] upon discharge and will call and or return as needed should symptoms exacerbate. Time spent discussing smoking cessation with patient: 3 to 10 minutes Status at Discharge Functional status at discharge: independent ambulation Overall status at discharge: patient is back to baseline Time Spent with Patient Time attestation: Total time managing care of this patient today ____ minutes. 35 Time spent: Greater than 30 minutes Discharge Plan Discharge Anticipated Discharge Date/Time: 04/19/22 12:25 Patient Disposition: Xfer Other Discharge Diagnosis: Schizophrenia Referrals: PCP: Jeanette Lyons ([facility]) [Other] - 05/02/22 11:30 am (Appointment is in person at their office in [place] ) [facility] Intake: Rekha ([facility]) [Other] - 04/24/22 8:00 am (The [facility] building is on the same campus, behind the main hospital. You take a right after the ED, a left at the crosswalk and into Parking [address] C, you will see the walkway to the [facility] building by the red trailer building in the parking lot. ) Intake: Aleta Lopez ([facility]) [Other] - 04/26/22 3:00 pm (Telehealth- she will call the [employer] number at 3pm) Discharge Medications: New hydroxyzine HCl 25 mg Tablet 25 mg PO Q4H PRN (Reason: Anxiety) Qty: 30 0RF fluphenazine HCl 5 mg Tablet 5 mg PO TID PRN (Reason: manic episodes) Qty: 90 0RF Continued clonidine HCl 0.1 mg tablet 0.5 tab PO QID PRN (Reason: Anxiety) Qty: 60 1RF trazodone 50 mg tablet 1 tab PO DAILY PRN (Reason: insomnia) Qty: 30 0RF olanzapine 5 mg tablet 10 mg PO BEDTIME Qty: 30 0RF olanzapine 5 mg tablet 5 mg PO QAM Qty: 30 0RF thiamine HCl (vitamin B1) [Vitamin B-1] 100 mg Tablet 100 mg PO DAILY Qty: 30 0RF valacyclovir 500 mg tablet 1 tab PO BID Qty: 60 0RF nicotine (polacrilex) 4 mg Gum 4 mg BUCCAL Q2H PRN (Reason: Nicotine Cravings) Qty: 60 0RF fluphenazine decanoate 25 mg/mL solution 12.5 mg IM Q2W Qty: 1 0RF Discontinued melatonin 3 mg Tablet 6 mg PO BEDTIME fluphenazine HCl 5 mg tablet 1 tab PO BID PRN (Reason: manic episodes) Discharge Orders: Discharge Order (Routine); Ordered 04/19/22 Ordered By: Britany Abbott Diet: Advance to usual diet Activity on Discharge: As tolerated Stand Alone Forms: Patient Portal Discharge page Care Plan Goals: Maintain mood and safe behaviors Take medications as directed Practice coping skills Connect with out patient providers Health Concerns: Mood and behavioral stabilization Plan of Treatment: Follow up with out patient providers Prolixin injection will be due on 04/26/22. Take medications as directed Call/Return as needed Assessment: Pt interviewed prior to discharge and found to be fully oriented and without SI/HI. He has insight and demonstrates good judgment in terms of wanting to pursue treatment. He is not in imminent risk of harm to self or others and has a safety plan that includes presenting to the closest ER or calling 911 if feeling unsafe. Pt has been observed closely by nurisng staff throughout admission. He has not engaged in any behaviors that suggest dangerousness to self or others and has demonstrated appropriate behaviors and impulse control. Discharge Date/Time: 04/19/22 14:14
== END 2022-04-19 14:14 | disposition other institution (70) | DRG 885 ==
LOC: HO.ED 04-13 08:30 → HO.PM5 04-13 15:52
PROVIDERS: Psychiatry & Neurology Psychiatry; Admitting Provider Clinical Nurse Specialist Psychiatric/Mental Health, Adult; Emergency Provider Emergency Medicine; Visit Provider Clinical Nurse Specialist Psychiatric/Mental Health, Adult
DX: F20.9 Schizophrenia, unspecified (principal); Z91.013 Allergy to seafood; Z79.899 Other long term (current) drug therapy
CPT/HCPCS: 36415; 80053; 80061; 80307; 82607; 82746; 82947; 83036; 83735; 84439; 84443; 85025; 87635; 99285